=== PATIENT | female | born 1955 | race Caucasian/White ===

== ENCOUNTER 2020-03-16 14:39 | Emergency (ER) | payer OTHER ==
--- OUTSIDE RECORDS SUMMARY | 2020-03-16 14:56 | XMS ---
:1955 [facility] Organization [facility] Care Team Providers Name Role Phone Suero, Alice Unavailable Unavailable Suero, Alice Unavailable Unavailable Suero, Alice Unavailable Unavailable Suero, Alice Unavailable Unavailable Suero, Alice Unavailable Unavailable Suero, Alice Unavailable Unavailable Suero, Alice Unavailable Unavailable Suero, Alice Unavailable Unavailable Suero, Alice Unavailable Unavailable Suero, Alice Unavailable Unavailable ED STAFF PHYSICIAN, STAFF Unavailable Unavailable Coon, Marisol Unavailable Unavailable Coon, Marisol Unavailable Unavailable Coon, Marisol Unavailable Unavailable Coon, Marisol Unavailable Unavailable Coon, Marisol Unavailable Unavailable Coon, Marisol Unavailable Unavailable Coloka-Kump, Rodika DO Unavailable Unavailable Coloka-Kump, Rodika DO Unavailable Unavailable Coloka-Kump, Rodika DO Unavailable Unavailable Coloka-Kump, Rodika DO Unavailable Unavailable Coloka-Kump, Rodika DO Unavailable Unavailable Coloka-Kump, Rodika DO Unavailable Unavailable Coloka-Kump, Rodika DO Unavailable Unavailable Coloka-Kump, Rodika DO Unavailable Unavailable Coloka-Kump, Rodika DO Unavailable Unavailable Coloka-Kump, Rodika DO Unavailable Unavailable Coloka-Kump, Rodika DO Unavailable Unavailable Coloka-Kump, Rodika DO Unavailable Unavailable Coloka-Kump, Rodika DO Unavailable Unavailable Coloka-Kump, Rodika DO Unavailable Unavailable Coloka-Kump, Rodika DO Unavailable Unavailable Coloka-Kump, Rodika DO Unavailable Unavailable Coloka-Kump, Rodika DO Unavailable Unavailable Ringstad, Ilana Unavailable Unavailable Ringstad, Ilana Unavailable Unavailable Ringstad, Ilana Unavailable Unavailable Ringstad, Ilana Unavailable Unavailable Ringstad, Ilana Unavailable Unavailable Ringstad, Ilana Unavailable Unavailable Ringstad, Ilana Unavailable Unavailable Ringstad, Ilana Unavailable Unavailable Ringstad, Ilana Unavailable Unavailable Ringstad, Ilana Unavailable Unavailable Ringstad, Ilana Unavailable Unavailable Eric, Aqib Unavailable Unavailable Eric, Aqib Unavailable Unavailable Eric, Aqib Unavailable Unavailable Aszalos, Tomasa Brie Unavailable Unavailable Aszalos, Brie Unavailable Unavailable Aszalos, Brie Unavailable Unavailable Aszalos, Brie Unavailable Unavailable Aszalos, Brie Unavailable Unavailable Aszalos, Brie Unavailable Unavailable Aszalos, Brie Unavailable Unavailable Aszalos, Brie Unavailable Unavailable Aszalos, Brie Unavailable Unavailable Clemente Unavailable [phone] Clemente Unavailable [phone] Tete Jo MD Unavailable Unavailable Tete Jo MD Unavailable Unavailable Tete Jo MD Unavailable Unavailable Tete Jo MD Unavailable Unavailable Tete Jo MD Unavailable Unavailable Tete Jo MD Unavailable Unavailable Tete Jo MD Unavailable Unavailable Tete Jo MD Unavailable Unavailable Tete Jo MD Unavailable Unavailable Tete Jo MD Unavailable Unavailable Tete Jo MD Unavailable Unavailable Tete Jo MD Unavailable Unavailable Tete Jo MD Unavailable Unavailable Tete Jo MD Unavailable Unavailable Tete Jo MD Unavailable Unavailable ZUNASSIGNED Unavailable Unavailable Randall Unavailable [phone] Kendall Unavailable [phone] Randall Unavailable [phone] Murillo-Baron Unavailable Unavailable Murillo-Baron Unavailable Unavailable ED STAFF PHYSICIAN Unavailable Unavailable [email or web address]@, Unavailable Unavailable Re-disclosure Warning The records that you are about to access may contain information from federally- assisted alcohol or drug abuse programs. If such information is present, then the following federally mandated warning applies: This information has been disclosed to you from records protected by federal confidentiality rules (42 CFR part 2). The federal rules prohibit you from making any further disclosure of this information unless further disclosure is expressly permitted by the written consent of the person to whom it pertains or as otherwise permitted by 42 CFR part 2. A general authorization for the release of medical or other information is NOT sufficient for this purpose. The Federal rules restrict any use of the information to criminally investigate or prosecute any alcohol or drug abuse patient.The records that you are about to access may contain highly sensitive health information, the redisclosure of which is protected by Article 27-F of the [facility] Public Health law. If you continue you may haveaccess to information: Regarding HIV / AIDS; Provided by facilities licensed or operated by the [facility] Office of Mental Health; or Provided by the [facility] Office for People With Developmental Disabilities. If such information is present, then the following [facility] mandated warning applies: This information has been disclosed to you from confidential records which are protected by state law. State law prohibits you from making any further disclosure of this information without the specific written consent of the person to whom it pertains, or as otherwise permitted by law. Any unauthorized further disclosure in violation of state law may result in a fine or retirement sentence or both. A general authorization for the release of medical or other information is NOT sufficient authorization for further disclosure. Family History Family Member Family Member Family Member Date of Description Data Source(s) Name Gender Status Status Unknown Female Diagnosis 09/02/2010 NEXTGEN ([facility] 12:00:00 AM [facility]) Unknown Female Diagnosis 09/02/2010 NEXTGEN ([facility] 12:00:00 AM [facility]) Unknown Female [facility] Encounters Encounter Providers Location Date Indications Data Source(s ) Outpatient Attender: 03/07/2020 Leonacarlos manuel [facility] 12:49:00 Medical C enter tter: PM EDT ZUNASSIGNEDRefe rrer: [id number] [email or web address]@, Outpatient Attender: Alice Hooper 03/07/2020 [facility] VelezAdmitter: 09:20:00 Medical Ce nter Alice AM EDT VelezReferrer: Alice Sueor Outpatient Admitter: 03/07/2020 [facility] [id number] 12:00:00 Medical Center [email or web address]@,Re AM EDT marcelo: [id number] [email or web address]@, Attender: [facility] 10/10/2019 NEXTGEN ( int [facility] 10/10/2019 09:52:00 AM EDT Attender: [place] 10/01/2019 NEXTGEN ( int [facility] 09:18:00 [facility] AM EDT - Center) 10/01/2019 09:18:00 AM EDT Outpatient 08/17/2019 [facility] 09:53:00 Medical Center AM EDT Outpatient Attender: H 08/17/2019 [facility] Rodika 08:58:00 [facility] Panda-Divya AM EDT DOAdmitter: [facility] DOReferrer: La Nena [facility] DO OutpatientOFFICE Attender: [facility] 08/17/2019 NEXTG EN ([facility] /OUTPATIENT [facility] 08:58:00 Leona Medic al VISIT, EST [facility] AM EDT - Center) 08/17/2019 08:58:00 AM EDT Outpatient 08/17/2019 [facility] 12:00:00 Medical Center AM EDT Attender: [facility] 08/16/2019 NEXTGEN ( int [facility] 11:51:00 Leona Medica l Murillo-Baron AM EDT - Center) 08/16/2019 11:51:00 AM EDT Outpatient Attender: Alice Hooper 07/30/2019 [facility] eph VelezAdmitter: 09:23:00 Medical Ce nter Alice AM EST VelezReferrer: Alice Suero OutpatientOFFICE Attender: Grace [facility] 07/30/2019 Bridgette EXTGEN ([facility] /OUTPATIENT [facility] 09:23:00 Leona Medic al VISIT, EST AM EST - Center) 07/30/2019 09:23:00 AM EST Outpatient 07/30/2019 [facility] 08:39:00 Medical Center AM EST Outpatient 07/30/2019 [facility] 12:00:00 Medical Center AM EST Outpatient 07/04/2019 [facility] 10:22:00 Medical Center AM EST Outpatient Attender: Tomasa Hooper 07/04/2019 [facility] AszalosAdmitter 08:52:00 Medical C enter : Tomasa AM EST AszalosReferrer : Tomasa Araiza OutpatientOFFICE Attender: [facility] 07/04/2019 NEXTG EN ([facility] /[facility] 08:52:00 Leona Medic al VISIT, [facility] EST - Center) 07/04/2019 08:52:00 AM EST Outpatient 07/04/2019 [facility] 12:00:00 Medical Center AM EST Attender: [facility] 07/02/2019 NEXTGEN ([facility] 12:44:00 Leona Medica l [facility] EST - Center) 07/02/2019 12:44:00 PM EST Emergency Attender: ED H 06/23/2019 [facility] STAFF 10:17:00 Medical Center PHYSICIANAttend AM EST - er: STAFF ED 06/23/2019 STAFF 05:36:00 PHYSICIANAdmitt PM EST er: ED STAFF PHYSICIAN Patient discharged. Outpatient Attender: Alice Hooper 06/23/2019 [facility] VelezAdmitter: Alice 08:27:00 AM [facility] Medical Center Suero OutpatientOFFICE/O Attender: Nabila [facility] 06/23/2019 AMALIAGEN ([facility] VISIT, [facility] 08:27:00 AM EST - J osephs EST 06/23/2019 Medical 08:27:00 AM EST Center) Outpatient 06/23/2019 [facility] 08:26:00 AM EST Medical C enter Outpatient 06/23/2019 [facility] 12:00:00 AM EST Medical C enter Attender: [facility] 06/21/2019 NEXTGE N ([facility] 04:11:00 PM [facility] 06/21/2019 Medical 04:11:00 PM EST Center) Attender: [facility] 04/24/2019 NEXTGE N ([facility] 03:11:00 PM [facility] 04/24/2019 Medical 03:11:00 PM EST Center) Attender: [facility] 04/11/2019 NEXTGE N ([facility] 09:58:00 AM EST - [facility] 04/11/2019 Medical 09:58:00 AM EST Center) Attender: [facility] 03/23/2019 NEXT GEN ([facility] 01:36:00 AM EDT [facility] 03/23/2019 Medical 01:36:00 AM EDT Center) Outpatient 03/21/2019 [facility] 12:52:00 PM EDT Medical C enter Outpatient Attender: Alice Hooper 03/21/2019 [facility] VelezAdmitter: Alice 09:04:00 AM EDT Medical Center VelezReferrer: Alice Suero OutpatientOFFICE/O Attender: [facility] 03/21/2019 NEXTGEN ([facility] VISIT, [facility] 09:04:00 AM EDT - [facility] 03/21/2019 Medical 09:04:00 AM EDT Center) Outpatient 03/21/2019 [facility] 12:00:00 AM EDT Medical C enter Attender: [facility] 03/20/2019 NEXT GEN ([facility] 09:30:00 AM EDT - [facility] 03/20/2019 Medical 09:30:00 AM EDT Center) Attender: [facility] 02/21/2019 NEXT GEN ([facility] 03:02:00 PM EDT - [facility] 02/21/2019 Medical 03:02:00 PM EDT Center) Attender: [facility] 02/21/2019 NEXT GEN ([facility] 03:00:00 PM EDT - [facility] 02/21/2019 Medical 03:00:00 PM EDT Center) Attender: [facility] 02/21/2019 NEX TGEN ([facility] 09:55:00 AM EDT - [facility] 02/21/2019 Medical 09:55:00 AM EDT Center) Outpatient H 02/20/2019 [facility] 05:53:00 PM EDT Medical C enter OutpatientOFFICE/O Attender: [facility] 02/20/2019 NEXTGEN ([facility] VISIT, [facility] 05:53:00 PM EDT - J osep EST 02/20/2019 Medical 05:53:00 PM EDT Center) Attender: [facility] 02/20/2019 NEXTGE N ([facility] 04:13:00 PM EDT - [facility] 02/20/2019 Medical 04:13:00 PM EDT Center) Outpatient 02/20/2019 [facility] 12:50:00 PM EDT Medical C enter Outpatient 02/20/2019 [facility] 12:00:00 AM EDT Medical C enter Attender: [facility] 02/19/2019 NEXT GEN ([facility] 04:26:00 PM EDT - [facility] eph 02/19/2019 Medical 04:26:00 PM EDT Center) Outpatient Attender: Alice Hooper 02/19/2019 [facility] VelezAdmitter: Alice 10:14:00 AM EDT Medical Center VelezReferrer: Alice Suero OutpatientOFFICE/O Attender: [facility] 02/19/2019 NEXTGEN ([facility] 10:14:00 AM EDT [facility] 02/19/2019 Medical 10:14:00 AM EDT Center) Outpatient 02/19/2019 [facility] 09:07:00 AM EDT Medical C enter Outpatient 02/19/2019 [facility] 12:00:00 AM EDT Medical C enter Attender: [facility] 02/06/2019 NEXT N ([facility] 12:08:00 PM EDT - [facility] 02/06/2019 Medical 12:08:00 PM EDT Center) Attender: [facility] 01/24/2019 NEXT N ([facility] 09:50:00 AM EDT - [facility] 01/24/2019 Medical 09:50:00 AM EDT Center) Attender: [facility] 01/18/2019 NEXT N ([facility] 02:34:00 PM EDT - [facility] 01/18/2019 Medical 02:34:00 PM EDT Center) Immunizations Vaccine Date Status Description Data Source(s) New in 2011. IIV4 02/19/2019 completed Influenza, Injectable, NEXTGEN ([facility] 12:00:00 AM EDT Quadrivalent [facility]) Source: New Immunization Record Medications Medication Brand Start Product Dose Route Administrative Pharm[facility] Indications Reaction Description Data Name Date Form Instructions Instructions Source(s) Aspirin 81 aspiri ORAL active take 1 N EXTGEN MG Delayed n 81 2019 {tbl} tablet by (Sa int Release mg 12:00: oral route Dionicio phs Oral Tablet tablet 00 AM every day Medical aspirin 81 ,delay EDT Center) mg ed tablet,annita releas yed release e pantoprazol pantop .00 ORAL active take 2 NEXTGEN e 20 MG razole 2020 {tbl} tablet by (Del nt Delayed 20 mg 12:00: oral route Luis E ephs Release tablet 00 AM every day Medi ronda Oral Tablet ,delay EDT Center ) pantoprazol ed e 20 mg releas tablet,annita e yed release atorvastati atorva ORAL active take 1 NEXTGEN n 80 MG statin 2020 {tbl} tablet by (Del nt Oral Tablet 80 mg 12:00: oral route Leona atorvastati tablet 00 AM every day Medical n 80 mg EDT Center) tablet Metformin metfor ORAL active take 1 NE XTGEN hydrochlori min 2020 {tbl} tablet by (S aint de 500 MG 500 mg 12:00: oral route 2 Leona Oral Tablet tablet 00 AM times ever y Medical metformin EDT day with Center ) 500 mg morning and tablet evening meals Meclizine mecliz ORAL active take 1 NE XTGEN Hydrochlori ine 25 2019 {tbl} tablet by ([facility] de 25 MG mg 12:00: oral route 2 J osephs Oral Tablet tablet 00 AM times ever y Medical meclizine EDT day as Center) 25 mg needed tablet NITROFURANT Macrob ORAL complet NITROF URANTO NEXTGEN OIN, id 100 2020 {caps ed IN, ([facility] MACROCRYSTA mg 12:00: ule} MACROCRYSTA L Leona LS 25 MG / capsul 00 AM S 25 MG / M edical Nitrofurant e EST Nitrofuranto Center) oin, in, Monohydrate Monohydrate 75 MG Oral 75 MG Oral Capsule Capsule [Macrobid] [Macrobid] Macrobid 100 mg capsule 120 ACTUAT Floven . RESPIR active 120 AC TUAT NEXTGEN Fluticasone t HFA 2020 {puff ATORY Fluticason e ([facility] propionate 110 12:00: } (INHAL propionate Leona 0.11 mcg/ac 00 AM ATION) 0.11 Medical MG/ACTUAT tuatio EST MG/ACTUAT [facility]) Metered n Metered Dose Dose aeroso Inhaler Inhaler l [Flovent] [Flovent] inhale Flovent HFA r 110 mcg/actuati on aerosol inhaler Ibuprofen ibupro . ORAL complet take 1 N EXTGEN 600 MG Oral fen 2019 {tbl} ed tablet by (S aint Tablet 600 mg 12:00: oral route 3 J osephs ibuprofen tablet 00 AM times every Medical 600 mg EST day with Center) tablet food 200 ACTUAT Ventol 07/04/ active [id number] NEXTGEN Albuterol in HFA 2019 200 ACTUAT (S aint 0.09 90 12:00: Albuterol Leona MG/ACTUAT mcg/ac 00 AM 0.09 Medical Metered tuatio EST MG/ACTUAT Cente r) Dose n Metered Dose Inhaler aeroso Inhaler [Ventolin] l [Ventolin] Ventolin inhale HFA 90 r mcg/actuati on aerosol inhaler Famotidine famoti . ORAL complet take 1 NEXTGEN 20 MG Oral dine 2019 {tbl} ed tablet by (Sa int Tablet 20 mg 12:00: oral route 2 An sephs famotidine tablet 00 AM times every Medical 20 mg EST day Center) tablet Meclizine mecliz ORAL complet take 1 N EXTGEN Hydrochlori ine 25 2018 {tbl} ed tablet by (Saint de 25 MG mg 12:00: oral route 2 J osephs Oral Tablet tablet 00 AM times ever y Medical meclizine EDT day as Center) 25 mg needed tablet atorvastati atorva . ORAL complet take 1 NEXTGEN n 80 MG statin 2018 {tbl} ed tablet by (Del nt Oral Tablet 80 mg 12:00: oral route Leona atorvastati tablet 00 AM every day Medical n 80 mg EDT Center) tablet Glycerin Clear 03/21/ complet To apply 1 -2 NEXTGEN 2.5 MG/ML / Eyes 2019 ed gtt each (Del nt Naphazoline Itchy 12:00: eye, for J osephs Hydrochlori Eye 00 AM itchiness/re Medical de 0.12 Relief EDT dness as Center ) MG/ML / 0.012 needed. Zinc %-0.25 Sulfate 2.5 %-0.25 MG/ML % Ophthalmic drops Solution Clear Eyes Itchy Eye Relief 0.012 %-0.25 %-0.25 % drops 200 ACTUAT Ventol 02/20/ complet [id number] NEXTGEN Albuterol in HFA 2019 ed 200 ACTUAT (S aint 0.09 90 12:00: Albuterol [place]ona MG/ACTUAT mcg/ac 00 AM 0.09 Medical Metered tuatio EDT MG/ACTUAT Cente r) Dose n Metered Dose Inhaler aeroso Inhaler [Ventolin] l [Ventolin] Ventolin inhale HFA 90 r mcg/actuati on aerosol inhaler 120 ACTUAT Floven 02/20/ 1.00 RESPIR complet 120 A CTUAT NEXTGEN Fluticasone t HFA 2019 {puff ATORY ed Fluticason e ([facility] propionate 110 12:00: } (INHAL propionate Leona 0.11 mcg/ac 00 AM ATION) 0.11 Medical MG/ACTUAT tuatio EDT MG/ACTUAT [facility]) Metered n Metered Dose Dose aeroso Inhaler Inhaler l [Flovent] [Flovent] inhale Flovent HFA r 110 mcg/actuati on aerosol inhaler Flonase Flutic 02/20/ NASAL complet Fluticaso ne NEXTGEN Allergy asone 2019 ed propionate (Gerardo t Relief 50 propio 12:00: 0.05 [place] s mcg/actuati godfrey 00 AM MG/ACTUAT Me dical on nasal 0.05 EDT Metered Dose [address]) spray,suspe MG/ACT Nasal [place] nsion UAT [Flonase] Metere d Dose Nasal [place] 200 ACTUAT Ventol 02/19/ complet [id number] NEXTGEN Albuterol in HFA 2019 ed 200 ACTUAT (S aint 0.09 90 12:00: Albuterol [place] MG/ACTUAT mcg/ac 00 AM 0.09 Medical Metered tuatio EDT MG/ACTUAT Cente r) Dose n Metered Dose Inhaler aeroso Inhaler [Ventolin] l [Ventolin] Ventolin inhale HFA 90 r mcg/actuati on aerosol inhaler 120 ACTUAT Floven .00 RESPIR complet 120 A CTUAT NEXTGEN Fluticasone t HFA 2018 {puff ATORY ed Fluticason e ([facility] propionate 44 12:00: } (INHAL propionate [place]ona 0.044 mcg/ac 00 AM ATION) 0.044 Medical MG/ACTUAT tuatio EDT MG/ACTUAT [facility]) Metered n Metered Dose Dose aeroso Inhaler Inhaler l [Flovent] [Flovent] inhale Flovent HFA r 44 mcg/actuati on aerosol inhaler 120 ACTUAT Floven .00 RESPIR complet 120 A CTUAT NEXTGEN Fluticasone t HFA 2018 {puff ATORY ed Fluticason e ([facility] propionate 110 12:00: } (INHAL propionate [place]ona 0.11 mcg/ac 00 AM ATION) 0.11 Medical MG/ACTUAT tuatio EDT MG/ACTUAT [facility]) Metered n Metered Dose Dose aeroso Inhaler Inhaler l [Flovent] [Flovent] inhale Flovent HFA r 110 mcg/actuati on aerosol inhaler Flonase Flutic 02/19/ NASAL complet Fluticaso ne NEXTGEN Allergy asone 2019 ed propionate (Gerardo t Relief 50 propio 12:00: 0.05 [place] s mcg/actuati godfrey 00 AM MG/ACTUAT Me dical on nasal 0.05 EDT Metered Dose [address]) spray,suspe MG/ACT Nasal [place] nsion UAT [Flonase] Metere d Dose Nasal [place] Calcium Calciu ORAL active take 1 NEXT GEN Carbonate m 500 2018 {tbl} tablet by (Sa int 1250 MG / mg 12:00: oral route An sephs Cholecalcif (1,250 00 AM every day Medical shasta 125 mg) + EDT Center) UNT Oral D3 125 Tablet unit Calcium 500 tablet mg (1,250 mg) + D3 125 unit tablet Aspirin 81 aspiri .00 ORAL complet take 1 NEXTGEN MG Delayed n 81 2018 {tbl} ed tablet by (Sa int Release mg 12:00: oral route Dionicio phs Oral Tablet tablet 00 AM every day Medical aspirin 81 ,delay EDT Center) mg ed tablet,annita releas yed release e 120 ACTUAT Floven 12/20/ 2.00 RESPIR complet 120 A CTUAT NEXTGEN Fluticasone t HFA 2019 {puff ATORY ed Fluticason e ([facility] propionate 44 12:00: } (INHAL propionate Leona 0.044 mcg/ac 00 AM ATION) 0.044 Medical MG/ACTUAT tuatio EDT MG/ACTUAT [facility]) Metered n Metered Dose Dose aeroso Inhaler Inhaler l [Flovent] [Flovent] inhale Flovent HFA r 44 mcg/actuati on aerosol inhaler Glycerin Clear 12/20/ complet To apply 1 -2 NEXTGEN 2.5 MG/ML / Eyes 2019 ed gtt each (Del nt Naphazoline Itchy 12:00: eye, for J osephs Hydrochlori Eye 00 AM itchiness/re Medical de 0.12 Relief EDT dness as Center ) MG/ML / 0.012 needed. Zinc %-0.25 Sulfate 2.5 %-0.25 MG/ML % Ophthalmic drops Solution Clear Eyes Itchy Eye Relief 0.012 %-0.25 %-0.25 % drops atorvastati atorva .00 ORAL complet take 1 NEXTGEN n 80 MG statin 2018 {tbl} ed tablet by (Del nt Oral Tablet 80 mg 12:00: oral route [place] atorvastati tablet 00 AM every day Medical n 80 mg EDT Center) tablet Metformin metfor .00 ORAL complet take 1 N EXTGEN hydrochlori min 2018 {tbl} ed tablet by (S aint de 500 MG 500 mg 12:00: oral route 2 [place] Oral Tablet tablet 00 AM times ever y Medical metformin EDT day with Center ) 500 mg morning and tablet evening meals Meclizine mecliz ORAL complet take 1 N EXTGEN Hydrochlori ine 2018 {tbl} ed tablet by ( de 25 MG mg 12:00: oral route 2 J osephs Oral Tablet tablet 00 AM times ever y Medical meclizine EDT day as Center) 25 mg needed tablet Flonase Flutic 09/20/ NASAL complet Fluticaso ne NEXTGEN Allergy asone 2019 ed propionate (Gerardo t Relief 50 propio 12:00: 0.05 [place] [facility] mcg/actuati godfrey 00 AM MG/ACTUAT Me dical on nasal 0.05 EDT Metered Dose [address]) spray,suspe MG/ACT Nasal [place] nsion UAT [Flonase] Metere d Dose Nasal [place] 200 ACTUAT Ventol [id number] NEXTGEN Albuterol in HFA 2019 ed 200 ACTUAT (S aint 0.09 90 12:00: Albuterol [place] MG/ACTUAT mcg/ac 00 AM 0.09 Medical Metered tuatio EDT MG/ACTUAT Cente r) Dose n Metered Dose Inhaler aeroso Inhaler [Ventolin] l [Ventolin] Ventolin inhale HFA 90 r mcg/actuati on aerosol inhaler Insurance Providers Payer name Policy type Policy ID Covered Covered green party's Policy P mis / Coverage green party ID relationship to Perdomo Inf ormation type perdomo IRENE [id number] SP [id number] HEALTH NON CAP IRENE W [id number] 01 [id number] CARE Problems, Conditions, and Diagnoses Code Display Name Description Problem Type Effective Data Dates Source(s) Z11.9 Encounter for ENCOUNTER FOR Diagnosis 03/07/2020 [facility] screening for SCREENING FOR 09:20:00 AM [facility] infectious and INFEC/PARASTC ED Medical parasitic diseases, DISEASES, UNSP C enter unspecified Z23 Encounter for ENCOUNTER FOR Diagnosis 03/07/2020 [facility] immunization IMMUNIZATION 09:20:00 AM [facility] Z71.89 Other specified OTHER SPECIFIED Diagnosis 03/07/2020 [facility] counseling COUNSELING 09:20:00 AM [facility] N64.9 Disorder of breast, DISORDER OF BREAST, Diagnosis 020 [facility] unspecified UNSPECIFIED 09:20:00 AM [facility] E78.5 Hyperlipidemia, HYPERLIPIDEMIA, Diagnosis 03/07/2020 Gerardo chung unspecified UNSPECIFIED 09:20:00 AM [facility] Z12.31 Encounter for ENCNTR SCREEN Diagnosis 03/07/2020 [facility] screening mammogram MAMMOGRAM FOR 09:20:00 AM [facility] MALIGNANT NEOPLASM EDT Med ical neoplasm of breast OF BREAST Center E11.9 Type 2 diabetes TYPE 2 DIABETES Diagnosis 08/17/2019 Gerardo chung mellitus without MELLITUS WITHOUT 08:58:00 AM J osep complications COMPLICATIONS EDT Medical Center R42 Dizziness and DIZZINESS AND Diagnosis 08/17/2019 giddiness GIDDINESS 08:58:00 AM [facility] K21.9 Gastro-esophageal GASTRO-ESOPHAGEAL Diagnosis 08/17/2019 reflux disease REFLUX DISEASE 08:58:00 AM [facility] without esophagitis WITHOUT ESOPHAGITIS [facility] [facility] [facility] [place] Z71.9 Counseling, COUNSELING, Diagnosis 07/30/2019 unspecified UNSPECIFIED 09:23:00 AM [facility] R30.0 Dysuria DYSURIA Diagnosis 07/30/2019 [facility] 09:23:00 AM [facility] 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 JUNCTION SYNDROME 08:52:00 AM [facility] [Tietze] (TIETZE) [facility] J45.909 Unspecified asthma, UNSPECIFIED ASTHMA, Diagnosis [facility] uncomplicated UNCOMPLICATED 10:17:00 AM [facility] R40.2410 Ricky coma scale RICKY COMA SCALE Diagnosis 0 [facility] score 13-15, SCORE 13-15, 10:17:00 AM [facility] unspecified time UNSPECIFIED TIME [facility] dical Center M79.18 MYALGIA, OTHER SITE MYALGIA, OTHER SITE Diagnosis [facility] 10:17:00 AM [facility] R10.9 Unspecified UNSPECIFIED Diagnosis 06/23/2019 abdominal pain ABDOMINAL PAIN 10:17:[facility]10.812 Left upper quadrant LEFT UPPER QUADRANT Diagnosis [facility] abdominal tenderness ABDOMINAL TENDERNESS 08:27 :00 AM [facility] Z11.4 Encounter for ENCOUNTER FOR Diagnosis 03/21/2019 screening for human SCREENING FOR HUMAN 09:04:0 0 AM [place] immunodeficiency IMMUNODEFICIENCY T [facility] virus [HIV] VIRUS Center Z68.30 Body mass index BODY MASS INDEX Diagnosis 03/21/2019 Gerardo t (BMI) 30.0-30.9, (BMI) 30.0-30.9, 09:04:00 AM [facility] adult ADULT [facility] Z13.9 Encounter for ENCOUNTER FOR Diagnosis 03/21/2019 screening, SCREENING, 09:04:00 AM [place] unspecified UNSPECIFIED [facility] J30.2 Other seasonal OTHER SEASONAL Diagnosis 03/21/2019 allergic rhinitis ALLERGIC RHINITIS 09:04:00 AM [facility] H81.13 Benign paroxysmal BENIGN PAROXYSMAL Diagnosis 03/21/2019 [facility] vertigo, bilateral VERTIGO, BILATERAL 09:04:00 AM [facility] J45.40 Moderate persistent MODERATE PERSISTENT Diagnosis [facility] asthma, ASTHMA, 05:53:00 PM [facility] Z71.82 Exercise counseling EXERCISE COUNSELING Diagnosis [facility] 10:14:00 AM [facility] Z71.3 Dietary counseling DIETARY COUNSELING Diagnosis 9 [facility] and surveillance AND SURVEILLANCE 10:14:00 AM [facility] Surgeries/Procedures Procedure Description Date Indications Data Source(s) OFFICE/OUTPATIENT VISIT, 08/17/2019 NEX TGEN ([facility] EST 12:00:00 AM EDT [facility] - 08/17/2019 [place]) 12:00:00 AM EDT OFFICE/OUTPATIENT VISIT, 07/30/2019 NEX TGEN ([facility] EST 12:00:00 AM [facility] 07/30/2019 [place]) 12:00:00 AM EST OFFICE/OUTPATIENT VISIT, 07/04/2019 NEX TGEN ([facility] EST 12:00:00 AM [facility] - 07/04/2019 [place]) 12:00:00 AM EST OFFICE/OUTPATIENT VISIT, 06/23/2019 NEX TGEN ([facility] EST 12:00:00 AM [facility] - 06/23/2019 [place]) 12:00:00 AM EST OFFICE/OUTPATIENT VISIT, 03/21/2019 NEX TGEN ([facility] EST 12:00:00 AM EDT [facility] - 03/21/2019 [place]) 12:00:00 AM EDT OFFICE/OUTPATIENT VISIT, 02/20/2019 NEX TGEN ([facility] [place] 12:00:00 AM EDT Influenza, Injectable, 3 02/19/2019 NEX TGEN ([facility] Yrs Or Older [facility] [place] 12:00:00 AM EDT Immunization 02/19/2019 NEXTGEN ([facility] Administration 12:00:00 AM EDT [facility] dical - 02/19/2019 Center) 12:00:00 AM EDT OFFICE/OUTPATIENT VISIT, 02/19/2019 NEX TGEN ([facility] EST 12:00:00 AM EDT [facility] ronda - 02/19/2019 Center) 12:00:00 AM EDT Results ID Date Data Source [id number] 03/08/2020 09:35:00 AM EDT [facility] Name Value Range Interpretation Description Data Sup porting Code Source(s) Document(s ) SARS [facility] coronavirus 2 RNA This lab was ordered by [facility] and reported by [facility]. ID Date Data Source [id number] 03/07/2020 11:51:00 AM EDT [facility] -0400 Name Value Range Interpretation Code Description Data Sabiha rce(s) Supporting Document(s ) UNK 4.2-5.8 Above high normal <content [facility] styleCode="Bold" Medical Cente r >Hemoglobin A1C </content>6.3 % H<content styleCode="Itali cs"> (4.2-5.8 %)</content> ID Date Data Source [id number] 11/28/2019 12:00:00 AM EDT [facility] Name Value Range Interpretation Description Data Sup porting Code Source(s) Document(s ) SARS [facility] coronavirus 2 RNA This lab was ordered by [facility] and reported by [facility]. ID Date Data Source [id number] 07/30/2019 10:37:00 AM EST NEXTG EN ([facility] [id number] [place]) Name Value Range Interpretation Description Data Sup porting Code Source(s) Document(s ) Negative Bilirubin NEXTGEN ([facility]) Clear Clarity N[facility]GEN ([facility]) Trace Blood NEXT[facility] ([facility]) 1.010 [place] [facility]) Urinalysis Yellow Color NEXTGEN dipstick panel ([facility] Urine [facility] Automated test Medical strip Center) 7.0 pH NEXTGEN ([facility]) Negative Ketones NEXTGEN ([facility]) Negative Nitrite NEXTGEN ([facility]) Moderate Leukocytes NEXTGEN ([facility]) Negative Urobilinogen NEXTGEN ([facility]) Negative Glucose NEXTGEN ([facility]) Negative Protein NEXTGEN ([facility]) ID Date Data Source [id number] 07/30/2019 10:35:00 AM EST NEXTG EN ([facility] [id number] [place]) Name Value Range Interpretation Code Description Data Supporting Source(s) Document(s ) >16 Results entered -- AMPICILLIN NEXTGEN not verified ([facility]) <=4 Susceptible. AZTREONAM NEXTGEN Indicates for ([facility] [place]) <=2 Susceptible. CEFAZOLIN NEXTGEN Indicates for ([facility] Medical only. [place]) 16/8 Specimen in lab; AMPICILLIN NEXTGEN results pending SULBACTAM ([facility]) <=4 Susceptible. CEFUROXIME NEXTGEN Indicates for ([facility] Medical [place]. [place]) <=1 Susceptible. CEFTRIAXONE NEXTGEN Indicates for ([facility]. [place]) <=1 Susceptible. CEFTAZIDIME NEXTGEN Indicates for ([facility]. [place]) <= 4 Susceptible. GENTAMICIN NEXTGEN Indicates for ([facility] Medical only. [place]) <= 2 Susceptible. LEVOFLOXACIN NEXTGEN Indicates for ([facility] Medical only. [place]) <= 1 Susceptible. CIPROFLOXACIN NEXTGEN Indicates for ([facility] Medical [place]. [place]) <= 32 Susceptible. NITROFURANTOIN NEXTGEN Indicates for ([facility] Medical [place]. [place]) <= 1 Susceptible. MEROPENEM NEXTGEN Indicates for ([facility] only. [place]) <= 16 Susceptible. PIPERACILLIN/TAZOB NEXTGEN Indicates for ACTAM ([facility] Medical only. [place]) <=2/38 Susceptible. TRIMETHOPRIM/SULFA NEXTGEN Indicates for METHOXAZOLE ([facility] Medical only. [place]) <= 4 Susceptible. TETRACYCLINE NEXTGEN Indicates for ([facility]. [place]) <=0.5 Susceptible. ERTAPENEM NEXTGEN Indicates for ([facility] Medical only. [place]) <= 1 CEFOTAXIME-ESBL NEXTGEN ([facility]) <= 8 Susceptible. CEFOXITIN NEXTGEN Indicates for ([facility] only. Center) ID Date Data Source [id number] 07/30/2019 10:35:00 AM EST NEXTG EN ([facility] [id number] [place]) Name Value Range Interpretation Description Data Sup porting Code Source(s) Document(s ) ESCHERICHIA COLI ORGANISM ID [facility] ID Date Data Source [id number] 07/30/2019 10:35:00 AM EST NEXTG EN ([facility] [id number] [place]) Name Value Range Interpretation Description Data Sup porting Code Source(s) Document(s ) 62.94017 SPE[facility]IMEN NO [facility]) Final CULTURE STATUS [facility] ([facility]) 07/30/2019 COLLECTION DT NEXTGEN 10:35 ([facility]) URINE BLADDER CULTURE SOURCE [facility]) 50,000 CFU/ML COLONY COUNT [facility]) 07/30/2019 PLATE DT NEXTGEN 12:17 ([facility]) Culture in CULTURE REPORT [facility] progress ([facility]) LACTOSE PRELIMINARY 1 [facility] ADVANCED PRACTICE NURSE ([facility]) ID Date Data Source [id number] 07/30/2019 10:35:00 AM EST NEXTG EN ([facility] [id number] [place]) Name Value Range Interpretation Description Data Sup porting Code Source(s) Document(s ) 62.46605 SPECIMEN NO [facility]) Preliminary CULTURE STATUS [facility] ([facility]) URINE BLADDER CULTURE SOURCE [facility] ([facility]) 07/30/2019 COLLECTION DT NEXTGEN 10:35 ([facility]) 07/30/2019 PLATE DT NEXTGEN 12:17 ([facility]) Culture in [facility] REPORT [facility] progress ([facility]) 50,000 CFU/ML COLONY COUNT [facility]) LACTOSE PRELIMINARY 1 [facility] ADVANCED PRACTICE NURSE ([facility]) ID Date Data Source [id number] 07/30/2019 10:35:00 AM EST NEXTG EN ([facility] [id number] [place]) Name Value Range Interpretation Description Data Sup porting Code Source(s) Document(s ) Preliminary C[facility]URE STATUS [facility]) URINE BLADDER CULTURE SOURCE [facility] ([facility]) 62.31590 SPECIMEN NO NEXTGEN ([facility]) 07/30/2019 PLATE DT NEXTGEN 12:17 ([facility]) 07/30/2019 COLLECTION DT NEXTGEN 10:35 ([facility]) Culture in [facility] REPORT [facility] progress ([facility]) ID Date Data Source [id number] 07/30/2019 10:35:00 AM EST NEXTG EN ([facility] [id number] [place]) Name Value Range Interpretation Description Data Sup porting Code Source(s) Document(s ) CLEAR CLEAR U CLARITY [facility] ([facility]) YELLOW YELLOW U COLOR [facility] ([facility]) NEGATIVE NEGATIVE U BILIRUBIN NEXT[facility] ([facility]) NEGATIVE NEGATIVE U GLUCOSE [facility] ([facility]) NEGATIVE NEGATIVE U KETONE [facility] ([facility]) <= 1.005 1.015-1.025 Below low normal U SP.GRAVITY [facility] ([facility]) 6.0 4.5-8.0 U PH [facility] ([facility]) NEGATIVE NEGATIVE U PROTEIN [facility] ([facility]) TRACE NEGATIVE U [facility]LOOD [facility] NEGATIVE NEGATIVE U NITRITE [facility] ([facility]) 0.2 MG/DL 0.2-1.0 U UROBILINOGEN [facility]) 0-3 0-3 U RBC [facility] ([facility]) MODERATE NEGATIVE U. [facility]OCYTE [facility]) 20 - 50 0-3 U WBC [facility]) 2-5 NONE SEEN U EPITH [facility] ([facility]) MODERATE NEGATIVE U BACTERIA [facility] ([facility]) ID Date Data Source [id number] 07/30/2019 10:35:00 AM EST NEXTG EN ([facility] [id number] [place]) Name Value Range Interpretation Description Data Sup porting Code Source(s) Document(s ) CLEAR CLEAR U CLARITY [facility] ([facility]) NEGATIVE NEGATIVE U GLUCOSE [facility] ([facility]) NEGATIVE NEGATIVE U BILIRUBIN [facility] ([facility]) NEGATIVE NEGATIVE U KETONE [facility] ([facility]) <= 1.005 1.015-1.025 Below low normal U SP.GRAVITY [facility] ([facility]) 6.0 4.5-8.0 U PH [facility] ([facility]) TRACE NEGATIVE U BLOOD [facility] ([facility]) NEGATIVE NEGATIVE U PROTEIN [facility] ([facility]) 0.2 MG/DL 0.2-1.0 U UROBILINOGEN [facility] ([facility]) NEGATIVE NEGATIVE U [facility]ITE [facility]) MODERATE NEGATIVE U. LEUKOCYTE [facility] ([facility]) ID Date Data Source [id number] 07/30/2019 09:35:00 AM EST [facility] 0 Name Value Range Interpretation Description Data Sup porting Code Source(s) Document(s ) Glucose NEGATIVE <content [facility] [Mass/volume] styleCode="Federica [place] in Urine by d">Urine Medical Test strip Glucose Center </content>NEGA TIVE MG/DL<content styleCode="Danni lics"> (NEGATIVE MG/DL)</conten t> UNK CLEAR <content [facility] styleCode="[facility] d">Urine Medical Clarity Center </content>FIDELIA R <content styleCode="Danni lics"> (CLEAR )</content> Color of Urine YELLOW <content [facility] styleCode="Federica Leona d">Color, Medical Urine Center </content>YELL OW <content styleCode="Danni lics"> (YELLOW )</content> Ketones NEGATIVE <content [facility] [Mass/volume] styleCode="[facility]eder[facility] in Urine by d">Urine Medical Test strip Ketone Center </content>NEGA TIVE MG/DL<content styleCode="Danni lics"> (NEGATIVE MG/DL)</conten t> Specific 1.015-1.02 Below low normal <content [facility] gravity of 5 styleCode="Federica Seays Urine by Test d">Urine Medical strip Specific Center [place] </content><= 1.005 L<content styleCode="Danni lics"> (1.015-1.025 )</content> Hemoglobin NEGATIVE <content [facility] [Presence] in styleCode="Federica Leona Urine by Test d">Urine Blood Medical strip </content>TRAC Center E <content styleCode="Danni lics"> (NEGATIVE )</content> UNK NEGATIVE <content [facility] styleCode="Feder[facility]ona d">Urine Medical Bilirubin Center </content>NEGA TIVE <content styleCode="Danni lics"> (NEGATIVE )</content> pH of Urine by 4.5-8.0 <content [facility] Test strip styleCode="Federica [facility] d">Urine pH Medical </content>6.0 Center <content styleCode="Danni lics"> (4.5-8.0 )</content> Urobilinogen 0.2-1.0 <content [facility] [Units/volume] styleCode="[facility] in Urine by d">Urine Medical Test strip Urobilinogen Center </content>0.2 MG/DL<content styleCode="Danni lics"> (0.2-1.0 MG/DL)</conten t> Protein NEGATIVE <content [facility] [Mass/volume] styleCode="[facility] [place] in Urine by d">Urine Medical Test strip Protein Center </content>NEGA TIVE MG/DL<content styleCode="Danni lics"> (NEGATIVE MG/DL)</conten t> Nitrite NEGATIVE <content [facility] [Presence] in styleCode="[facility] Urine by Test d">Urine Medical strip Nitrite Center </content>NEGA TIVE <content styleCode="Danni lics"> (NEGATIVE )</content> UNK 0-3 <content [facility] styleCode="[facility]eder[facility] d">Urine White Medical Blood Cell Center </content>20 - 50 HPF<content styleCode="Danni lics"> (0-3 HPF)</content> Leukocyte NEGATIVE <content [facility] esterase styleCode="Feder[facility] Leona [Presence] in d">Urine Medical Urine by Test Leukocyte Center strip </content>MODE RATE <content styleCode="Danni lics"> (NEGATIVE )</content> UNK NONE SEEN <content styleCode="[facility] d">Epithelial Medical Cell Center </content>2-5 HPF<content styleCode="Danni lics"> (NONE SEEN HPF)</content> UNK 0-3 <content styleCode="[facility]eder[facility] Delgadillo d">Urine Red Medical Blood Cell Center </content>0-3 HPF<content styleCode="Danni lics"> (0-3 HPF)</content> UNK NEGATIVE <content styleCode="[facility] d">Urine Medical Bacteria Center </content>MODE RATE HPF<content styleCode="Danni lics"> (NEGATIVE HPF)</content> ID Date Data Source [id number] 07/30/2019 09:35:00 AM [facility] Name Value Range Interpretation Code Description Data Sabiha rce(s) Supporting Document(s ) UNK <item><content [facility] styleCode="Bold"> Medical Cent er Culture Status </content>
<t able><tbody><tr>< td>Specimen Number:</td><td>[id number]</td></tr ><tr><td>Sample Collection Date/Time: </td><td>07/30/2019 10:35 AM</td></tr><tr>< td>Specimen Source:</td><td>U RINE BLADDER</td></tr> <tr><td>Canones Count Urine:</td><td>50 ,000 CFU/ML </td></tr><tr><td >Preliminary 1:</td><td>LACTOS E ADVANCED PRACTICE NURSE </td></tr><tr><td >Culture Status:</td><td>F inal </td></tr><tr><td >Culture Report:</td><td>C ulture in progress </td></tr><tr><td >Urine Culture:</td><td> Collection Plate Date: 07/30/2019 12:17 </td></tr><tr><td >Organism 1:</td><td>ESCHER ICHIA COLI </td></tr></tbody ></table>
<ta ble border="2"><tbody ><tr><td></td><td >1</td></tr><tr>< td>Comment</td><t d></td></tr><tr>< td>Result Value</td><td>ESC HERICHIA COLI </td></tr><tr><td >Result Status</td><td>Fi nal Result</td></tr>< tr><td>AMPICILLIN </td><td>>16 R</td></tr><tr><t d>AMPICILLIN SULBACTAM</td><td >16/8 I</td></tr><tr><t d>AZTREONAM</td>< td><=4 S</td></tr><tr><t d>CEFAZOLIN</td>< td><=2 S</td></tr><tr><t d>CEFOTAXIME-ESBL </td><td><= 1 ^N</td></tr><tr>< td>CEFOXITIN</td> <td><= 8 S</td></tr><tr><t d>CEFTAZIDIME</td ><td><=1 S</td></tr><tr><t d>CEFTRIAXONE</td ><td><=1 S</td></tr><tr><t d>CEFUROXIME</td> <td><=4 S</td></tr><tr><t d>CIPROFLOXACIN</ td><td><= 1 S</td></tr><tr><t d>ERTAPENEM</td>< td><=0.5 S</td></tr><tr><t d>GENTAMICIN</td> <td><= 4 S</td></tr><tr><t d>LEVOFLOXACIN</t d><td><= 2 S</td></tr><tr><t d>MEROPENEM</td>< td><= 1 S</td></tr><tr><t d>NITROFURANTOIN< /td><td><= 32 S</td></tr><tr><t d>PIPERACILLIN/TA ZOBACTAM</td><td> <= 16 S</td></tr><tr><t d>TETRACYCLINE</t d><td><= 4 S</td></tr><tr><t d>TRIMETHOPRIM/TELLES LFAMETHOXAZOLE</t d><td><=2/38 S</td></tr></tbod y></table></item> UNK <item><content [facility] styleCode="Bold"> Medical [facility] er Culture Report </content>
<t able><tbody><tr>< td>Specimen Number:</td><td>[id number]</td></tr ><tr><td>Sample Collection Date/Time: </td><td>07/30/2019 10:35 AM</td></tr><tr>< td>Specimen Source:</td><td>U RINE BLADDER</td></tr> <tr><td>Urine Culture:</td><td> Collection Plate Date: 07/30/2019 12:17 </td></tr><tr><td >Culture Status:</td><td>F inal </td></tr><tr><td >Culture Report:</td><td>C ulture in progress </td></tr><tr><td >Canones Count Urine:</td><td>50 ,000 CFU/ML </td></tr><tr><td >Preliminary 1:</td><td>LACTOS E ADVANCED PRACTICE NURSE </td></tr><tr><td >Organism 1:</td><td>ESCHER ICHIA COLI </td></tr></tbody ></table>
<ta ble border="2"><tbody ><tr><td></td><td >1</td></tr><tr>< td>Comment</td><t d></td></tr><tr>< td>Result Value</td><td>ESC HERICHIA COLI </td></tr><tr><td >Result Status</td><td>Fi nal Result</td></tr>< tr><td>AMPICILLIN </td><td>>16 R</td></tr><tr><t d>AMPICILLIN SULBACTAM</td><td >16/8 I</td></tr><tr><t d>AZTREONAM</td>< td><=4 S</td></tr><tr><t d>CEFAZOLIN</td>< td><=2 S</td></tr><tr><t d>CEFOTAXIME-ESBL </td><td><= 1 ^N</td></tr><tr>< td>CEFOXITIN</td> <td><= 8 S</td></tr><tr><t d>CEFTAZIDIME</td ><td><=1 S</td></tr><tr><t d>CEFTRIAXONE</td ><td><=1 S</td></tr><tr><t d>CEFUROXIME</td> <td><=4 S</td></tr><tr><t d>CIPROFLOXACIN</ td><td><= 1 S</td></tr><tr><t d>ERTAPENEM</td>< td><=0.5 S</td></tr><tr><t d>GENTAMICIN</td> <td><= 4 S</td></tr><tr><t d>LEVOFLOXACIN</t d><td><= 2 S</td></tr><tr><t d>MEROPENEM</td>< td><= 1 S</td></tr><tr><t d>NITROFURANTOIN< /td><td><= 32 S</td></tr><tr><t d>PIPERACILLIN/TA ZOBACTAM</td><td> <= 16 S</td></tr><tr><t d>TETRACYCLINE</t d><td><= 4 S</td></tr><tr><t d>TRIMETHOPRIM/TELLES LFAMETHOXAZOLE</t d><td><=2/38 S</td></tr></tbod y></table></item> ID Date Data Source [id number] 06/23/2019 11:35:00 AM [facility] Name Value Range Interpretation Description Data Sup porting Code Source(s) Document(s ) Color of Urine YELLOW <content [facility] styleCode="[facility] d">Color, Medical Urine Center </content>YELL OW <content styleCode="Danni lics"> (YELLOW )</content> UNK CLEAR <content [facility] styleCode="[facility] d">Urine Medical Clarity Center </content>FIDELIA R <content styleCode="Danni lics"> (CLEAR )</content> Specific 1.015-1.02 Below low normal <content [facility] gravity of 5 styleCode="[facility] Urine by Test d">Urine Medical strip Specific Center [place] </content><= 1.005 L<content styleCode="Danni lics"> (1.015-1.025 )</content> UNK NEGATIVE <content [facility] styleCode="[facility] d">Urine Medical Bilirubin Center </content>NEGA TIVE <content styleCode="Danni lics"> (NEGATIVE )</content> Ketones NEGATIVE <content [facility] [Mass/volume] styleCode="Federica Seays in Urine by d">Urine Medical Test strip Ketone Center </content>15 MG/DL<content styleCode="Danni lics"> (NEGATIVE MG/DL)</conten t> Glucose NEGATIVE <content [facility] [Mass/volume] styleCode="Federica Seays in Urine by d">Urine Medical Test strip Glucose Center </content>NEGA TIVE MG/DL<content styleCode="Danni lics"> (NEGATIVE MG/DL)</conten t> pH of Urine by 4.5-8.0 <content [facility] Test strip styleCode="Federica Leona d">Urine pH Medical </content>7.0 Center <content styleCode="Danni lics"> (4.5-8.0 )</content> Urobilinogen 0.2-1.0 <content Saint [Units/volume] styleCode="Federica Seays in Urine by d">Urine Medical Test strip Urobilinogen Center </content>0.2 MG/DL<content styleCode="Danni lics"> (0.2-1.0 MG/DL)</conten t> Hemoglobin NEGATIVE <content Saint [Presence] in styleCode="Federica Seays Urine by Test d">Urine Blood Medical strip </content>NEGA Center TIVE <content styleCode="Danni lics"> (NEGATIVE )</content> Protein NEGATIVE <content Saint [Mass/volume] styleCode="Federica Seays in Urine by d">Urine Medical Test strip Protein Center </content>NEGA TIVE MG/DL<content styleCode="Danni lics"> (NEGATIVE MG/DL)</conten t> Nitrite NEGATIVE <content Saint [Presence] in styleCode="Federica Seays Urine by Test d">Urine Medical strip Nitrite Center </content>NEGA TIVE <content styleCode="Danni lics"> (NEGATIVE )</content> Leukocyte NEGATIVE <content Saint esterase styleCode="Federica Seays [Presence] in d">Urine Medical Urine by Test Leukocyte Center strip </content>NEGA TIVE <content styleCode="Danni lics"> (NEGATIVE )</content> ID Date Data Source Liver 06/23/2019 11:01:00 AM EST [facility] Profile.[id number] Name Value Range Interpretation Description Data Sup porting Code Source(s) Document(s ) Alanine 7-30 <content [facility] aminotransferase styleCode="Bold"> Hira hs [Enzymatic Alanine Medical activity/volume] Aminotransferase Center in Serum or Plasma (ALT) </content>30 IU/L<content styleCode="Italic s"> (7-30 IU/L)</content> Aspartate 14-36 <content [facility] aminotransferase styleCode="Bold"> Hira hs [Enzymatic Aspartate Medical activity/volume] Aminotransferase Center in Serum or Plasma (AST) </content>27 IU/L<content styleCode="Italic s"> (14-36 IU/L)</content> Bilirubin.total 0.2-1.3 <content Saint [Mass/volume] in styleCode="Bold"> Hira hs Serum or Plasma Bilirubin Total Medical </content>0.4 Center MG/DL<content styleCode="Italic s"> (0.2-1.3 MG/DL)</content> UNK 0.0-0.3 <content Saint styleCode="Bold"> Leona Bilirubin, Direct Medical </content>< 0.2 Center MG/DL<content styleCode="Italic s"> (0.0-0.3 MG/DL)</content> Alkaline 38-126 <content Saint phosphatase styleCode="Bold"> Leona [Enzymatic Alkaline Medical activity/volume] Phosphatase (ALP) Cente r in Serum or Plasma </content>116 IU/L<content styleCode="Italic s"> (38-126 IU/L)</content> Albumin 3.5-5.0 <content Saint [Mass/volume] in styleCode="Bold"> Hira hs Serum or Plasma Albumin Medical </content>4.5 Center G/DL<content styleCode="Italic s"> (3.5-5.0 G/DL)</content> ID Date Data Source HematologyRou.[id number] 06/23/2019 11:01:00 AM EULALIO Mathis [facility] 0500 Name Value Range Interpretation Description Data Sup porting Code Source(s) Document(s ) Hematocrit 36.0-46. <content Saint [Volume 0 styleCode="Bold Leona Fraction] of ">Hematocrit Medical Blood by </content>40.7 Center Automated count %<content styleCode="Ital ics"> (36.0-46.0 %)</content> Hemoglobin 12.3-16. <content Saint [Mass/volume] in 0 styleCode="Bold Leona Blood ">Hemoglobin Medical </content>13.7 Center G/DL<content styleCode="Ital ics"> (12.3-16.0 G/DL)</content> Erythrocytes 4.0-5.1 <content Saint [#/volume] in styleCode="Bold Leona Blood by ">Red Blood Medical Automated count Cell Count Center </content>4.57 MCUMM<content styleCode="Ital ics"> (4.0-5.1 MCUMM)</content > Leukocytes 4.4-11.0 <content Saint [#/volume] in styleCode="Bold Leona Blood by ">White Blood Medical Automated count Cell Count Center </content>5.48 KCUMM<content styleCode="Ital ics"> (4.4-11.0 KCUMM)</content > Erythrocyte mean 80.0-100 <content Saint corpuscular .0 styleCode="Bold Leona volume [Entitic ">Mean Medical volume] by Corpuscular Center Automated count Volume </content>89.1 FL<content styleCode="Ital ics"> (80.0-100.0 FL)</content> Erythrocyte mean 26.0-34. <content [facility] corpuscular 0 styleCode="Bold Leona hemoglobin ">Mean Medical [Entitic mass] Corposcular Center by Automated Hemoglobin count </content>30.0 PG<content styleCode="Ital ics"> (26.0-34.0 PG)</content> Erythrocyte mean 32.0-37. <content [facility] corpuscular 0 styleCode="Bold Leona hemoglobin ">Mean Corpus. Medical concentration Hgb Center [Mass/volume] by Concentration Automated count (MCHC) </content>33.7 G/DL<content styleCode="Ital ics"> (32.0-37.0 G/DL)</content> Platelets 130-400 <content Saint [#/volume] in styleCode="Bold Leona Blood by ">Platelet Medical Automated count Count Center </content>274 KCUMM<content styleCode="Ital ics"> (130-400 KCUMM)</content > Erythrocyte 11.5-14. <content Saint distribution 5 styleCode="Bold Leona width [Ratio] by ">Red Cell Medical Automated count Distribution Center Width </content>12.3 %<content styleCode="Ital ics"> (11.5-14.5 %)</content> Platelet mean 8.0-11.0 <content Saint volume [Entitic styleCode="Bold Leona volume] in Blood ">Mean Platelet Medical by Automated Volume Center count </content>10.2 FL<content styleCode="Ital ics"> (8.0-11.0 FL)</content> UNK 0 <content Saint styleCode="Bold Leona ">Nucleated Red Medical Blood Cell Center </content>0.0 /100<content styleCode="Ital ics"> (0 /100)</content> UNK 0.0 <content Saint styleCode="Bold Leona ">Nucleated Red Medical Blood Cell Center Count </content>0.00 KCUMM<content styleCode="Ital ics"> (0.0 KCUMM)</content > ID Date Data Source GFR(Creatinine).[id number] 06/23/2019 11:01:[address] [facility] 0-0500 Name Value Range Interpretation Code Description Data Sabiha rce(s) Supporting Document(s ) UNK > 60 <content [facility] styleCode="Bold"> Medical Cent er EGFR </content>108 GFR<content styleCode="Italic s"> (> 60 GFR)</content> ID Date Data Source CHMROUTINECCDA.[id number] 06/23/2019 11:01:00 AM [facility] -0500 Name Value Range Interpretation Description Data Sup porting Code Source(s) Document(s ) Lipase 23-300 <content [facility]ona [Enzymatic styleCode="Bold Medical activity/vo ">Lipase Center lume] in </content>55 Serum or IU/L<content Plasma styleCode="Ital ics"> (23-300 IU/L)</content> ID Date Data Source CardiacMarkers.[id number] 06/23/2019 11:01:00 AM [facility] -0500 Name Value Range Interpretation Description Data Sup porting Code Source(s) Document(s ) Troponin < 0.034 <content Saint I.cardiac styleCode="Bold Leona [Mass/volume ">Troponin I Medical ] in Serum </content>< Center or Plasma 0.012 NG/ML<content styleCode="Ital ics"> (< 0.034 NG/ML)</content > ID Date Data Source [id number] 06/23/2019 11:01:00 AM [facility] Name Value Range Interpretation Description Data Sup porting Code Source(s) Document(s ) Sodium 137-145 <content Saint [Moles/volume] in styleCode="Bold"> Dionicio phs Serum or Plasma Sodium Medical </content>137 Center MEQ/L<content styleCode="Italic s"> (137-145 MEQ/L)</content> Potassium 3.5-5.3 <content Saint [Moles/volume] in styleCode="Bold"> Dionicio phs Serum or Plasma Potassium Medical </content>3.9 Center MEQ/L<content styleCode="Italic s"> (3.5-5.3 MEQ/L)</content> UNK 7-17 <content Saint styleCode="Bold"> [place]ona BUN </content>8 Medical MG/DL<content Center styleCode="Italic s"> (7-17 MG/DL)</content> Carbon dioxide, 22-30 <content Saint total styleCode="Bold"> Leona [Moles/volume] in Carbon Dioxide Medical Serum or Plasma </content>25 Center MEQ/L<content styleCode="Italic s"> (22-30 MEQ/L)</content> Chloride 98-107 <content Saint [Moles/volume] in styleCode="Bold"> Dionicio phs Serum or Plasma Chloride Medical </content>103 Center MEQ/L<content styleCode="Italic s"> (98-107 MEQ/L)</content> Aspartate 14-36 <content [facility] aminotransferase styleCode="Bold"> Hira hs [Enzymatic Aspartate Medical activity/volume] Aminotransferase Center in Serum or Plasma (AST) </content>27 IU/L<content styleCode="Italic s"> (14-36 IU/L)</content> Creatinine 0.5-1.3 <content Saint [Mass/volume] in styleCode="Bold"> Hira hs Serum or Plasma Creatinine Medical </content>0.6 Center MG/DL<content styleCode="Italic s"> (0.5-1.3 MG/DL)</content> Glucose 74-106 Above high <content Saint [Mass/volume] in normal styleCode="Bold"> Hira hs Serum or Plasma Glucose Medical </content>110 Center MG/DL H<content styleCode="Italic s"> (74-106 MG/DL)</content> UNK > 60 <content Saint styleCode="Bold"> [place] EGFR Medical </content>108 Center GFR<content styleCode="Italic s"> (> 60 GFR)</content> Alanine 7-30 <content [facility] aminotransferase styleCode="Bold"> Hira hs [Enzymatic Alanine Medical activity/volume] Aminotransferase Center in Serum or Plasma (ALT) </content>30 IU/L<content styleCode="Italic s"> (7-30 IU/L)</content> Calcium 8.4-10. <content Saint [Mass/volume] in 2 styleCode="Bold"> Hira hs Serum or Plasma Calcium Medical </content>9.6 Center MG/DL<content styleCode="Italic s"> (8.4-10.2 MG/DL)</content> Bilirubin.total 0.2-1.3 <content Saint [Mass/volume] in styleCode="Bold"> Hira hs Serum or Plasma Bilirubin Total Medical </content>0.4 Center MG/DL<content styleCode="Italic s"> (0.2-1.3 MG/DL)</content> Albumin 3.5-5.0 <content Saint [Mass/volume] in styleCode="Bold"> Hira hs Serum or Plasma Albumin Medical </content>4.5 Center G/DL<content styleCode="Italic s"> (3.5-5.0 G/DL)</content> Alkaline 38-126 <content Saint phosphatase styleCode="Bold"> Leona [Enzymatic Alkaline Medical activity/volume] Phosphatase (ALP) Cente r in Serum or Plasma </content>116 IU/L<content styleCode="Italic s"> (38-126 IU/L)</content> ID Date Data Source [id number] 03/21/2019 10:55:00 AM EDT NEXT EN ([facility] [id number] [place]) Name Value Range Interpretation Code Description Data Sabiha rce(s) Supporting Document(s ) NEGATIVE NEGATIVE HCVAb [facility] ([facility]) ID Date Data Source [id number] 03/21/2019 10:55:00 AM EDT NEXT EN ([facility] [id number] [place]) Name Value Range Interpretation Code Description Data Sabiha rce(s) Supporting Document(s ) NON-REACTI NON-REACTI HIV 1+2 AB [facility] ([facility]) This test was run using the Sapients 5600 immunodiagnostic System. Theresults of the Vitros Anti-HIV 1 + 2 assay, in conjunction with otherserological evidenceand clinical information, may be used as an a id in the diagnosis ofinfection with HIV -1 and/or HIV-2 in persons with signs or symptoms of,or at risk for,HIV infection. If the result is Reactive, the result is PRELIMINARY, aconfirmatory test will f ollow, and the Confirmatory Result MUST beconsidered in making a diagnosis related to HIV infection. ID Date Data Source Liver 02/19/2019 12:47:00 PM EDT [facility] Profile.[id number] Name Value Range Interpretation Description Data Sup porting Code Source(s) Document(s ) Alanine 7-30 Above high <content Saint aminotransferase normal styleCode="Bold"> Hira hs [Enzymatic Alanine Medical activity/volume] Aminotransferase Center in Serum or Plasma (ALT) </content>37 IU/L H<content styleCode="Italic s"> (7-30 IU/L)</content> Alkaline 38-126 <content [facility] phosphatase styleCode="Bold"> [facility] [Enzymatic Alkaline Medical activity/volume] Phosphatase (ALP) Cente r in Serum or Plasma </content>118 IU/L<content styleCode="Italic s"> (38-126 IU/L)</content> Aspartate 14-36 <content [facility] aminotransferase styleCode="Bold"> Hira hs [Enzymatic Aspartate Medical activity/volume] Aminotransferase Center in Serum or Plasma (AST) </content>28 IU/L<content styleCode="Italic s"> (14-36 IU/L)</content> Bilirubin.total 0.2-1.3 <content Saint [Mass/volume] in styleCode="Bold"> Hira hs Serum or Plasma Bilirubin Total Medical </content>0.3 Center MG/DL<content styleCode="Italic s"> (0.2-1.3 MG/DL)</content> Albumin 3.5-5.0 <content Saint [Mass/volume] in styleCode="Bold"> Hira hs Serum or Plasma Albumin Medical </content>4.4 Center G/DL<content styleCode="Italic s"> (3.5-5.0 G/DL)</content> ID Date Data Source LIPID.[id number] 02/19/2019 12:47:00 PM EDT [facility] Name Value Range Interpretation Description Data Sup porting Code Source(s) Document(s ) Triglyceride < 150 <content Saint [Mass/volume] in styleCode="Federica [facility] Serum or Plasma d">Triglycerid Medical Center </content>123 MG/DL<content styleCode="Danni lics"> (< 150 MG/DL)</conten t> Cholesterol -<200 <content Saint [Mass/volume] in styleCode="Federica Leona Serum or Plasma d">Cholesterol Medical </content>189 Center MG/DL<content styleCode="Danni lics"> (-<200 MG/DL)</conten t> UNK > 60 Below low normal <content Saint styleCode="Federica Leona d">HDL- Medical Cholesterol Center </content>54 MG/DL L<content styleCode="Danni lics"> (> 60 MG/DL)</conten t> UNK < 100 Above high normal <content Saint styleCode="Federica Leona d">LDL-Cholest Medical shasta Center </content>110 MG/DL H<content styleCode="Danni lics"> (< 100 MG/DL)</conten t> ID Date Data Source Hormones.[id number] 02/19/2019 12:47:00 PM EDT [facility] Name Value Range Interpretation Description Data Sup porting Code Source(s) Document(s ) Thyrotropin 0.465-4. <content Saint [Units/volume] 68 styleCode="Federica Leona in Serum or d">Thyroid Medical Plasma by Stimulating Center Detection Hormone limit <= 0.05 </content>1.50 mIU/L MIU/L<content styleCode="Danni lics"> (0.465-4.68 MIU/L)</conten t> ID Date Data Source HematologyRou.[id number] 02/19/2019 12:47:[address] [facility] 0400 Name Value Range Interpretation Description Data Sup porting Code Source(s) Document(s ) Leukocytes 4.4-11.0 <content Saint [#/volume] in styleCode="Bold Leona Blood by ">White Blood Medical Automated count Cell Count Center </content>7.22 KCUMM<content styleCode="Ital ics"> (4.4-11.0 KCUMM)</content > Erythrocytes 4.0-5.1 <content Saint [#/volume] in styleCode="Bold Leona Blood by ">Red Blood Medical Automated count Cell Count Center </content>4.61 MCUMM<content styleCode="Ital ics"> (4.0-5.1 MCUMM)</content > Hematocrit 36.0-46. <content Saint [Volume 0 styleCode="Bold Leona Fraction] of ">Hematocrit Medical Blood by </content>42.2 Center Automated count %<content styleCode="Ital ics"> (36.0-46.0 %)</content> Hemoglobin 12.3-16. <content Saint [Mass/volume] in 0 styleCode="Bold Leona Blood ">Hemoglobin Medical </content>13.9 Center G/DL<content styleCode="Ital ics"> (12.3-16.0 G/DL)</content> Erythrocyte mean 32.0-37. <content Saint corpuscular 0 styleCode="Bold Leona hemoglobin ">Mean Corpus. Medical concentration Hgb Center [Mass/volume] by Concentration Automated count (MCHC) </content>32.9 G/DL<content styleCode="Ital ics"> (32.0-37.0 G/DL)</content> Erythrocyte mean 80.0-100 <content Saint corpuscular .0 styleCode="Bold Leona volume [Entitic ">Mean Medical volume] by Corpuscular Center Automated count Volume </content>91.5 FL<content styleCode="Ital ics"> (80.0-100.0 FL)</content> Erythrocyte mean 26.0-34. <content Saint corpuscular 0 styleCode="Bold Leona hemoglobin ">Mean Medical [Entitic mass] Corposcular Center by Automated Hemoglobin count </content>30.2 PG<content styleCode="Ital ics"> (26.0-34.0 PG)</content> Erythrocyte 11.5-14. <content Saint distribution 5 styleCode="Bold Leona width [Ratio] by ">Red Cell Medical Automated count Distribution Center Width </content>12.7 %<content styleCode="Ital ics"> (11.5-14.5 %)</content> Platelets 130-400 <content Saint [#/volume] in styleCode="Bold Leona Blood by ">Platelet Medical Automated count Count Center </content>293 KCUMM<content styleCode="Ital ics"> (130-400 KCUMM)</content > Neutrophils 36-66 <content Saint [#/volume] in styleCode="Bold Leona Blood by ">Neutrophil Medical Automated count </content>55.6 Center %<content styleCode="Ital ics"> (36-66 %)</content> UNK 1.6-7.3 <content Saint styleCode="Bold Leona ">Neutrophil Medical Count Center </content>4.01 KCUMM<content styleCode="Ital ics"> (1.6-7.3 KCUMM)</content > Platelet mean 8.0-11.0 <content Saint volume [Entitic styleCode="Bold Leona volume] in Blood ">Mean Platelet Medical by Automated Volume Center count </content>11.0 FL<content styleCode="Ital ics"> (8.0-11.0 FL)</content> UNK 1.0-4.8 <content Saint styleCode="Bold Leona ">Lymphocyte Medical Count Center </content>2.58 KCUMM<content styleCode="Ital ics"> (1.0-4.8 KCUMM)</content > Lymphocytes 24.0-44. <content Saint [#/volume] in 0 styleCode="Bold Leona Blood by ">Lymphocyte Medical Automated count </content>35.7 Center %<content styleCode="Ital ics"> (24.0-44.0 %)</content> UNK 0.2-0.9 <content Saint styleCode="Bold Leona ">Monocyte Medical Count Center </content>0.55 KCUMM<content styleCode="Ital ics"> (0.2-0.9 KCUMM)</content > Monocytes 3.0-10.0 <content Saint [#/volume] in styleCode="Bold Leona Blood by ">Monocyte Medical Automated count </content>7.6 Center %<content styleCode="Ital ics"> (3.0-10.0 %)</content> Eosinophils 0-5.0 <content Saint [#/volume] in styleCode="Bold Leona Blood by ">Eosinophil Medical Automated count </content>0.0 Center %<content styleCode="Ital ics"> (0-5.0 %)</content> Basophils 0.0-1.0 <content Saint [#/volume] in styleCode="Bold Leona Blood by ">Basophil Medical Automated count </content>0.8 Center %<content styleCode="Ital ics"> (0.0-1.0 %)</content> UNK 0.0-0.6 <content Saint styleCode="Bold Leona ">Eosinophil Medical Count Center </content>0.00 KCUMM<content styleCode="Ital ics"> (0.0-0.6 KCUMM)</content > UNK 0.0-0.3 <content Saint styleCode="Bold Leona ">Basophil Medical Count Center </content>0.06 KCUMM<content styleCode="Ital ics"> (0.0-0.3 KCUMM)</content > UNK 0.0 <content Saint styleCode="Bold Leona ">Nucleated Red Medical Blood Cell Center Count </content>0.00 KCUMM<content styleCode="Ital ics"> (0.0 KCUMM)</content > UNK 0 <content Saint styleCode="Bold Leona ">Nucleated Red Medical Blood Cell Center </content>0.0 /100<content styleCode="Ital ics"> (0 /100)</content> UNK 0-0.1 <content Saint styleCode="Bold Leona ">Immature Medical Granulocyte Center Count </content>0.02 KCUMM<content styleCode="Ital ics"> (0-0.1 KCUMM)</content > UNK < 1 <content Saint styleCode="Bold Leona ">Immature Medical Granulocyte Center Ratio </content>0.3 %<content styleCode="Ital ics"> (< 1 %)</content> ID Date Data Source GFR(Creatinine).[id number] 02/19/2019 12:47:00 PM [facility] Name Value Range Interpretation Code Description Data Sabiha rce(s) Supporting Document(s ) UNK > 60 <content [facility] styleCode="Bold"> Medical Cent er EGFR </content>108 GFR<content styleCode="Italic s"> (> 60 GFR)</content> ID Date Data Source ChemistrySpecia.[id number] 02/19/2019 12:47:[address] [facility] 0-0400 Name Value Range Interpretation Description Data Sup porting Code Source(s) Document(s ) Cobalamin 239-931 <content Saint (Vitamin B12) styleCode="Federica Leona [Mass/volume] d">Vitamin B12 Medical in Serum or </content>398 Center Plasma PG/ML<content styleCode="Danni lics"> (239-931 PG/ML)</conten t> ID Date Data Source CHMROUTINECCDA.[id number] 02/19/2019 12:47:[address] [facility] -0400 Name Value Range Interpretation Description Data Sup porting Code Source(s) Document(s ) UNK >= 1.0 <content Saint styleCode="Federcia Leona d">AG Ratio Medical </content>1.5 Center <content styleCode="Danni lics"> (>= 1.0 )</content> UNK Not <content Saint Established styleCode="Federica Leona d">[facility] n Center </content>0.4 mg/dL<content styleCode="Danni lics"> (Not Established mg/dL)</conten t> Protein 6.3-8.2 <content Saint [Mass/volu styleCode="Federica Leona me] in d">Total Medical Serum or Protein Center Plasma </content>7.4 G/DL<content styleCode="Danni lics"> (6.3-8.2 G/DL)</content > UNK 2.3-3.5 <content Saint styleCode="Federica Leona d">Globulin Medical </content>3.0 Center G/DL<content styleCode="Danni lics"> (2.3-3.5 G/DL)</content > ID Date Data Source [facility].[id number] 02/19/2019 12:47:00 PM EDT [facility] Name Value Range Interpretation Description Data Sup porting Code Source(s) Document(s ) Sodium 137-145 <content Saint [Moles/volume] in styleCode="Bold"> Dionicio phs Serum or Plasma Sodium Medical </content>142 Center MEQ/L<content styleCode="Italic s"> (137-145 MEQ/L)</content> Potassium 3.5-5.3 <content Saint [Moles/volume] in styleCode="Bold"> Dionicio phs Serum or Plasma Potassium Medical </content>4.2 Center MEQ/L<content styleCode="Italic s"> (3.5-5.3 MEQ/L)</content> Chloride 98-107 <content Saint [Moles/volume] in styleCode="Bold"> Dionicio phs Serum or Plasma Chloride Medical </content>103 Center MEQ/L<content styleCode="Italic s"> (98-107 MEQ/L)</content> Carbon dioxide, 22-30 <content Saint total styleCode="Bold"> Leona [Moles/volume] in Carbon Dioxide Medical Serum or Plasma </content>27 Center MEQ/L<content styleCode="Italic s"> (22-30 MEQ/L)</content> Creatinine 0.5-1.3 <content Saint [Mass/volume] in styleCode="Bold"> Hira hs Serum or Plasma Creatinine Medical </content>0.6 Center MG/DL<content styleCode="Italic s"> (0.5-1.3 MG/DL)</content> UNK 7-17 <content Saint styleCode="Bold"> [place]ona BUN </content>13 Medical MG/DL<content Center styleCode="Italic s"> (7-17 MG/DL)</content> Glucose 74-106 <content Saint [Mass/volume] in styleCode="Bold"> Hira hs Serum or Plasma Glucose Medical </content>95 Center MG/DL<content styleCode="Italic s"> (74-106 MG/DL)</content> UNK > 60 <content Saint styleCode="Bold"> [place] EGFR Medical </content>108 Center GFR<content styleCode="Italic s"> (> 60 GFR)</content> Calcium 8.4-10. <content Saint [Mass/volume] in 2 styleCode="Bold"> Hira hs Serum or Plasma Calcium Medical </content>10.2 Center MG/DL<content styleCode="Italic s"> (8.4-10.2 MG/DL)</content> Alkaline 38-126 <content Saint phosphatase styleCode="Bold"> [place] [Enzymatic Alkaline Medical activity/volume] Phosphatase (ALP) Cente r in Serum or Plasma </content>118 IU/L<content styleCode="Italic s"> (38-126 IU/L)</content> Alanine 7-30 Above high <content Saint aminotransferase normal styleCode="Bold"> Hira hs [Enzymatic Alanine Medical activity/volume] Aminotransferase Center in Serum or Plasma (ALT) </content>37 IU/L H<content styleCode="Italic s"> (7-30 IU/L)</content> Aspartate 14-36 <content Saint aminotransferase styleCode="Bold"> Hira hs [Enzymatic Aspartate Medical activity/volume] Aminotransferase Center in Serum or Plasma (AST) </content>28 IU/L<content styleCode="Italic s"> (14-36 IU/L)</content> Albumin 3.5-5.0 <content Saint [Mass/volume] in styleCode="Bold"> Hira hs Serum or Plasma Albumin Medical </content>4.4 Center G/DL<content styleCode="Italic s"> (3.5-5.0 G/DL)</content> Bilirubin.total 0.2-1.3 <content Saint [Mass/volume] in styleCode="Bold"> Hira hs Serum or Plasma Bilirubin Total Medical </content>0.3 Center MG/DL<content styleCode="Italic s"> (0.2-1.3 MG/DL)</content> ID Date Data Source [id number] 02/19/2019 12:47:00 PM EDT NEXTG EN ([facility] [id number] [place]) Name Value Range Interpretation Code Description Data Sabiha rce(s) Supporting Document(s ) 398 PG/ML [id number] VITAMIN B12 [facility] ([facility]) ID Date Data Source [id number] 02/19/2019 12:47:00 PM EDT NEXTG EN ([facility] [id number] [place]) Name Value Range Interpretation Code Description Data Sabiha rce(s) Supporting Document(s ) 1.50 MIU/L 0.465-4.68 TSH [facility] ([facility]) ID Date Data Source [id number] 02/19/2019 12:47:00 PM EDT NEXTG EN ([facility] [id number] [place]) Name Value Range Interpretation Code Description Data Sabiha rce(s) Supporting Document(s ) 110 MG/DL < 100 Above high normal LDL- CALC [facility]) 123 MG/DL < 150 TRIGLYCERIDES [facility] ([facility]) 189 MG/DL <200 CHOLESTEROL [facility] ([facility]) 54 MG/DL > 60 Below low normal HDL- CHOL [facility] ([facility]) ID Date Data Source [id number] 02/19/2019 12:47:00 PM EDT [facility] EN ([facility] [id number] [place]) Name Value Range Interpretation Description Data Sup porting Code Source(s) Document(s ) 142 MEQ/L 137-145 SODIUM [facility] ([facility]) 103 MEQ/L 98-107 CHLORIDE [facility] ([facility]) 27 MEQ/L 22-30 CARBON DIOXIDE [facility] ([facility]) 4.2 MEQ/L 3.5-5.3 POTASSIUM [facility] ([facility]) 7.4 G/DL 6.3-8.2 TOTAL PROTEIN [facility] ([facility]) 3.0 G/DL 2.3-3.5 GLOBULIN [facility]) 4.4 G/DL 3.5-5.0 ALBUMIN [facility] ([facility]) 28 IU/L 14-36 AST (GOT) [facility] ([facility]) 1.5 >= 1.0 AG RATIO [facility] ([facility]) 37 IU/L 7-30 Above high normal ALT [facility] ([facility]) 118 IU/L 38-126 ALP [facility] ([facility]) 10.2 MG/DL 8.4-10.2 CALCIUM [facility] ([facility]) 108 GFR > 60 eGFR [facility] ([facility]) Estimated GFR is calculated using the Mo dification of Diet in RenalDisease (MDRD) Study equation, and normalized to 1.73m2 body surfce area.The MDRD study equation should only be used in individuals age 18 orolder. It has not been validated f or the following: women,patients with serious comorbid conditions, or on certain medications, orpersons with extremes of body size, muscle mass, or nutritional status. 13 MG/DL 7-17 BUN [facility] ([facility]) 0.3 MG/DL 0.2-1.3 BILI, TOTAL [facility] ([facility]) 95 MG/DL 74-106 GLUCOSE [facility] ([facility]) 0.6 MG/DL 0.5-1.3 CREATININE [facility] ([facility]) ID Date Data Source [id number] 02/19/2019 12:47:00 PM EDT NEXT[facility] EN ([facility] [id number] [place]) Name Value Range Interpretation Code Description Data Sabiha rce(s) Supporting Document(s ) 26.4 NG/ML 25-OH VITAMIN D [facility] ([facility]ardo t [facility]) Deficient <20 ng/mLInsufficient 20 - <30 ng/mLSufficient 30 - 100 ng/mLPotential Toxicity >100 ng/mL

ID Date Data Source [id number] 02/19/2019 12:47:00 PM EDT [facility]EXT[facility] EN ([facility] [id number] [place]) Name Value Range Interpretation Code Description Data Sabiha rce(s) Supporting Document(s ) 123 MG/DL < 150 TRIGLYCERIDES [facility] ([facility]) 54 MG/DL > 60 Below low normal HDL- CHOL [facility] ([facility]) ID Date Data Source [id number] 02/19/2019 12:47:00 PM EDT [facility]EXT[facility] EN ([facility] [id number] [place]) Name Value Range Interpretation Description Data Sup porting Code Source(s) Document(s ) 142 MEQ/L 137-145 SODIUM [facility] ([facility]) 103 MEQ/L 98-107 CHLORIDE [facility] ([facility]) 27 MEQ/L 22-30 CARBON DIOXIDE [facility] ([facility]) 4.4 G/DL 3.5-5.0 ALBUMIN [facility] ([facility]) 28 IU/L 14-36 AST (GOT) [facility] ([facility]) 7.4 G/DL 6.3-8.2 TOTAL PROTEIN [facility] ([facility]) 37 IU/L 7-30 Above high normal ALT [facility] ([facility]) 10.2 MG/DL 8.4-10.2 CALCIUM [facility] ([facility]) 118 IU/L 38-126 ALP [facility] ([facility]) 13 MG/DL 7-17 BUN [facility] ([facility]) 0.6 MG/DL 0.5-1.3 CREATININE [facility] ([facility]) 0.3 MG/DL 0.2-1.3 BILI, TOTAL [facility] ([facility]) 95 MG/DL 74-106 GLUCOSE [facility] ([facility]) ID Date Data Source [id number] 02/19/2019 12:47:00 PM EDT NEXT[facility] EN ([facility] [id number] [place]) Name Value Range Interpretation Code Description Data Sabiha rce(s) Supporting Document(s ) 7.22 KCUMM 4.4-11.0 WBC [facility] ([facility]) 13.9 G/DL 12.3-16.0 HGB [facility] ([facility]) 4.61 MCUMM 4.0-5.1 RBC [facility] ([facility]) 30.2 PG 26.0-34.0 MCH [facility] ([facility]) 42.2 % 36.0-46.0 HCT [facility] ([facility]) 91.5 FL 80.0-100.0 MCV [facility] ([facility]) 12.7 % 11.5-14.5 RDW [facility] 293 KCUMM 130-400 PLT [facility] ([facility]) 32.9 G/DL 32.0-37.0 MCHC [facility] ([facility]) 11.0 FL 8.0-11.0 MPV [facility] ([facility]) 0.0 /100 0 NRBC% [facility] ([facility]) New parameters included in the report o f automated CBCNRBC(%/#) Is a direct count of Nucleated Red Blood cell, and will bereported with every CBC count. WBC will automatically be corrected withthe presence of NRBC. 0.00 KCUMM 0.0 NRBC ABS# [facility]) 35.7 % 24.0-44.0 LYMPHOCYTE % [facility] ([facility]) 55.6 % 36-66 NEUTROPHIL % [facility] ([facility]) 0.0 % 0-5.0 EOSINOPHIL % [facility] ([facility]) 7.6 % 3.0-10.0 MONOCYTE % [facility] ([facility]) 4.01 KCUMM 1.6-7.3 NEUTROPHIL ABS# [facility] ([facility]) 0.8 % 0.0-1.0 BASOPHIL % [facility] ([facility]) 2.58 KCUMM 1.0-4.8 LYMPHOCYTE ABS# [facility] ([facility]) 0.55 KCUMM 0.2-0.9 [facility]OCYTE ABS# [facility]) 0.00 KCUMM 0.0-0.6 EOSINOPHIL ABS# [facility] ([facility]) 0.06 KCUMM 0.0-0.3 BASOPHIL ABS# [facility] ([facility]) 0.02 KCUMM 0-0.1 IG ABS# [facility] ([facility]) New parameters included in the report o f automated CBC/DIFF.IG:(%/#) Immature Granulocytes ,includes the presence of (Metamyelocyte,Myelocyte,and Promyelocyte) 0.3 % < 1 IG% [facility] ([facility]) ID Date Data Source [id number] 02/19/2019 12:47:00 PM EDT NEXTG EN ([facility] [id number] [place]) Name Value Range Interpretation Code Description Data Sabiha rce(s) Supporting Document(s ) 7.22 KCUMM 4.4-11.0 WBC [facility]) 13.9 G/DL 12.3-16.0 HGB [facility] ([facility]) 4.61 MCUMM 4.0-5.1 RBC [facility] ([facility]) 91.5 FL 80.0-100.0 MCV [facility]) 42.2 % 36.0-46.0 HCT [facility]) 12.7 % 11.5-14.5 RDW [facility]) 32.9 G/DL 32.0-37.0 MCHC [facility]) 30.2 PG 26.0-34.0 MCH [facility]) 11.0 FL 8.0-11.0 MPV [facility]) 293 KCUMM 130-400 PLT [facility]) 0.0 /100 0 NRBC% [facility] ([facility]) New parameters included in the report o f automated CBCNRBC(%/#) Is a direct count of Nucleated Red Blood cell, and will bereported with every CBC count. WBC will automatically be corrected withthe presence of NRBC. 0.00 KCUMM 0.0 NRBC ABS# [facility] ([facility]) 35.7 % 24.0-44.0 LYMPHOCYTE % [facility] ([facility]) 55.6 % 36-66 NEUTROPHIL % [facility]) 4.01 KCUMM 1.6-7.3 NEUTROPHIL ABS# [facility] ([facility]) 0.0 % 0-5.0 EOSINOPHIL % [facility] ([facility]) 7.6 % 3.0-10.0 MONOCYTE % [facility] ([facility]) 2.58 KCUMM 1.0-4.8 LYMPHOCYTE ABS# [facility] ([facility]) 0.55 KCUMM 0.2-0.9 MONOCYTE ABS# [facility] ([facility]) 0.06 KCUMM 0.0-0.3 BASOPHIL ABS# [facility] ([facility]) 0.00 KCUMM 0.0-0.6 EOSINOPHIL ABS# [facility] ([facility]) 0.02 KCUMM 0-0.1 IG ABS# [facility] ([facility]) New parameters included in the report o f automated CBC/DIFF.IG:(%/#) Immature Granulocytes ,includes the presence of (Metamyelocyte,Myelocyte,and Promyelocyte) 0.3 % < 1 IG% [facility] ([facility]) ID Date Data Source [id number] 02/19/2019 12:47:00 PM EDT [facility] EN ([facility] [id number] Center) Name Value Range Interpretation Description Data Sup porting Code Source(s) Document(s ) 0.4 mg/dL Not MALB [facility] Established ([facility]) 11 mcg/m <30 MALB:CR RATIO [facility] ([facility]) The ADA defines abnormalities in albumin excretion asfollows:Category: Result (mcg/mg creatinine)Normal <30Microalbuminuria 30-299Clinical albuminuria > or = 30 0The ADA recommends that at least two of three specimenscollected within a 3-6 mo nth period be abnormal beforeconsidering a patient to be within a diagnostic catego ry.

36 mg/dL 20-275 CREATININE, RANDOM URINE [facility]) Procedure Social History Code Duration Value Status Description Data Source(s ) Caffeine Use 08/17/2019 coffee, 1 cup completed coffee, 1 cup [facility] N ([facility] 12:00:00 AM EDT [facility]) 08/17/2019 Never smoked completed Never smoked [facility] (S aint 12:00:00 AM EDT tobacco tobacco [facility]) Smoking 08/17/2019 Unknown if completed Unknown if ever [facility] ( [facility] 12:00:00 AM EDT ever smoked smoked [facility]) Smoking 06/23/2019 Denies Ever completed Denies Ever [place] [facility] 11:07:00 AM EST Smoked Smoked Medical [facility] enter Smoking 06/23/2019 Denies Ever completed Denies Ever [place] [facility] 11:00:00 AM EST Smoked Smoked Medical [facility] enter Smoking 06/23/2019 Denies Ever completed Denies Ever [place] [facility] 10:23:00 AM EST Smoked Smoked Medical [facility] enter Vital Signs ID Date Data Source UNK Name Value Range Interpretation Code Description Data Source(s) Oxygen saturation 98 % 98 % [facility] ([facility] in Arterial blood [facility] by Pulse oximetry Center) Body mass index 29.55 kg/m2 Overweight 29.55 kg/m2 [facility] ([facility] (BMI) [Ratio] [facility]) Respiratory rate 18 /min 18 /min [facility] ([facility]) Heart rate 92 /min 92 /min [facility] Diastolic blood 68 mm[Hg] 68 mm[Hg] [facility] ( [facility]) Systolic blood 125 mm[Hg] 125 mm[Hg] [facility] (S aint pressure [facility]) Body weight 74.480 kg 74.480 kg [facility] ([facility]) Body height 158.75 cm 158.75 cm [facility] Oxygen saturation 96 % 96 % [facility] ([facility] in Arterial blood [facility] by Pulse oximetry Center) Body mass index 29.16 kg/m2 Overweight 29.16 kg/m2 [facility] ([facility] (BMI) [Ratio] [facility]) Respiratory rate 19 /min 19 /min [facility] Body temperature 36.28 Lady 36.28 Lady [facility] ([facility]) Heart rate 108 /min 108 /min [facility] ([facility]) Diastolic blood 70 mm[Hg] 70 mm[Hg] [facility]) Systolic blood 128 mm[Hg] 128 mm[Hg] [facility] (S [facility] pressure [facility]) Body weight 73.482 kg 73.482 kg [facility] Body height 158.75 cm 158.75 cm [facility] ([facility]) Oxygen saturation 97 % 97 % [facility] ([facility] in Arterial [facility] by Pulse oximetry Center) Body mass index 29.27 kg/m2 Overweight 29.27 kg/m2 [facility] ([facility] (BMI) [Ratio] [facility]) Respiratory rate 18 /min 18 /min [facility] ([facility]) Body temperature 36.94 Lady 36.94 Lady [facility] ([facility]) Heart rate 98 /min 98 /min [facility] ([facility]) Diastolic blood 80 mm[Hg] 80 mm[Hg] [facility] ( [facility]) Systolic blood 133 mm[Hg] 133 mm[Hg] [facility]) Body weight 73.754 kg 73.754 kg [facility]) Body height 158.75 cm 158.75 cm [facility] ([facility]) Body temperature 37.552554 37.297658 [facility] Respiratory rate 19 /min 19 /min [facility] Oxygen saturation 98 % 98 % [facility] blood [facility] by Pulse oximetry Heart rate 86 /min 86 /min [facility] Diastolic blood 56 mm[Hg] 56 mm[Hg] [facility] Systolic blood 126 mm[Hg] 126 mm[Hg] [facility] Body temperature 37.414956 37.529030 [facility] Respiratory rate 17 /min 17 /min [facility] Oxygen saturation 99 % 99 % [facility] by Pulse oximetry Heart rate 83 /min 83 /min [facility] Diastolic blood 73 mm[Hg] 73 mm[Hg] [facility] Systolic blood 155 mm[Hg] 155 mm[Hg] [facility] Body weight 90.826687 kg 90.890741 kg [facility] Body temperature 36.899638 36.620340 [facility] Respiratory rate 18 /min 18 /min [facility] Oxygen saturation 99 % 99 % [facility] in [facility] by Pulse oximetry Heart rate 88 /min 88 /min [facility] Body height 162.491801 162.782230 cm [facility] Diastolic blood 76 mm[Hg] 76 mm[Hg] [facility] pressure Medical Center Systolic blood 132 mm[Hg] 132 mm[Hg] [facility] Body mass index 34.0 kg/m2 34.0 kg/m2 [facility] (BMI) [Ratio] Medical [facility] ter Respiratory rate 18 /min 18 /min [facility] ([facility]) Body temperature 36.94 Lady 36.94 Lady [facility] ([facility]) Heart rate 94 /min 94 /min [facility] ([facility]) Diastolic blood 76 mm[Hg] 76 mm[Hg] [facility] ( [facility]) Systolic blood 122 mm[Hg] 122 mm[Hg] [facility]) Body weight 74.389 kg 74.389 kg [facility] ([facility]) Body height 158.75 cm 158.75 cm [facility] ([facility]) Oxygen saturation 99 % 99 % [facility] Arterial [facility] by Pulse oximetry Center) Body mass index 29.52 kg/m2 Overweight 29.52 kg/m2 [facility] ([facility] (BMI) [Ratio] [facility]) Oxygen saturation 98 % 98 % [facility] ([facility] Arterial [facility] by Pulse oximetry Center) Body mass index 30.24 kg/m2 Overweight 30.24 kg/m2 [facility] ([facility] (BMI) [Ratio] [facility]) Respiratory rate 19 /min 19 /min [facility] ([facility]) Body temperature 36.67 Lady 36.67 Lady [facility] ([facility]) Heart rate 96 /min 96 /min [facility] ([facility]) Diastolic blood 78 mm[Hg] 78 mm[Hg] [facility] ( [facility]) Systolic blood 124 mm[Hg] 124 mm[Hg] [facility] (S aint pressure [facility]) Body weight 76.204 kg 76.204 kg [facility] ([facility]) Body height 158.75 cm 158.75 cm [facility]) Oxygen saturation 95 % 95 % [facility] ([facility] in Arterial blood [facility] by Pulse oximetry Center) Body mass index 30.42 kg/m2 Overweight 30.42 kg/m2 [facility] ([facility] (BMI) [Ratio] [facility]) Respiratory rate 18 /min 18 /min [facility] ([facility]) Body temperature 36.78 Lady 36.78 Lady [facility]) Heart rate 85 /min 85 /min [facility]) Diastolic blood 69 mm[Hg] 69 mm[Hg] [facility] ( [facility]) Systolic blood 115 mm[Hg] 115 mm[Hg] [facility] (S nt [facility]) Body weight 76.657 kg 76.657 kg [facility]) Body height 158.75 cm 158.75 cm [facility] ([facility]) Oxygen saturation 99 % 99 % [facility] ([facility] in Arterial [facility] by Pulse oximetry Center) Body mass index 30.53 kg/m2 Overweight 30.53 kg/m2 [facility] ([facility] (BMI) [Ratio] [facility]) Respiratory rate 19 /min 19 /min [facility]) Body temperature 36.17 Lady 36.17 Lady [facility]) Heart rate 89 /min 89 /min [facility] ([facility]) Diastolic blood 84 mm[Hg] 84 mm[Hg] [facility] ( [facility] Systolic blood 144 mm[Hg] 144 mm[Hg] [facility] (S aint pressure [facility]) Body weight 76.929 kg 76.929 kg [facility]) Body height 158.75 cm 158.75 cm [facility] ([facility]) Patient Treatment Plan of Care Planned Activity Planned Date Details Description Data Source (s) Aspirin 81 MG Delayed 08/17/2019 N[facility] N ([facility] Release Oral Tablet 12:00:[address] [facility]) Metformin hydrochloride 500 08/17/2019 N[facility] ([facility] MG Oral Tablet 12:00:00 AM [facility]) atorvastatin 80 MG Oral 08/17/2019 NEXT GEN ([facility] Tablet 12:00:00 AM [facility]) Meclizine Hydrochloride 25 08/17/2019 N EXTGEN ([facility] MG Oral Tablet 12:00:00 AM [facility]) pantoprazole 20 MG Delayed 08/17/2019 N EXTGEN (Saint Release Oral Tablet 12:00:[address] [facility]) 120 ACTUAT Fluticasone 07/30/2019 NEXTG EN (Saint propionate 0.11 MG/ACTUAT 12:00:00 AM [facility] Metered Dose Inhaler [place]) [Flovent] NITROFURANTOIN, 07/30/2019 NEXTGEN (Del nt MACROCRYSTALS 25 MG / 12:00:00 AM [facility] Nitrofurantoin, Monohydrate Center) 75 MG Oral Capsule [Macrobid] 200 ACTUAT Albuterol 0.09 07/04/2019 NE XTGEN (Saint MG/ACTUAT Metered Dose 12:00:00 AM [facility] Medical Inhaler [Ventolin] Center) Famotidine 20 MG Oral 07/04/2019 NEXTGE N (Saint Tablet 12:00:00 AM [facility]) Ibuprofen 600 MG Oral 07/04/2019 NEXTGE N (Saint Tablet 12:00:00 AM [facility]) atorvastatin 80 MG Oral 03/21/2019 NEXT GEN (Saint Tablet 12:00:00 AM [facility]) Meclizine Hydrochloride 25 03/21/2019 N EXTGEN (Saint MG Oral Tablet 12:00:00 AM [facility]) Glycerin 2.5 MG/ML / 03/21/2019 NEXTGEN (Saint Naphazoline Hydrochloride 12:00:00 AM [facility] 0.12 MG/ML / Zinc Sulfate Ce nter) 2.5 MG/ML Ophthalmic Solution Flonase Allergy Relief 50 02/20/2019 NE XTGEN ([facility] 120 ACTUAT Fluticasone 02/20/2019 NEXTG EN (Saint propionate 0.11 MG/ACTUAT 12:00:00 AM [facility] Metered Dose Inhaler Center) [Flovent] 200 ACTUAT Albuterol 0.09 02/20/2019 NE XTGEN (Saint MG/ACTUAT [facility]) Calcium Carbonate 1250 MG / 02/19/2019 NEXTGEN (Saint Cholecalciferol 125 UNT 12:00:00 AM [facility] Oral Tablet Center) 200 ACTUAT Albuterol 0.09 02/19/2019 NE XTGEN (Saint MG/ACTUAT Metered Dose 12:00:00 AM [facility] Inhaler [[facility] Center) 120 ACTUAT Fluticasone 02/19/2019 NEXTG EN (Saint propionate 0.11 MG/ACTUAT 12:00:00 AM [facility] Metered Dose Inhaler Center) [Flovent] 120 ACTUAT Fluticasone 02/19/2019 NEXTG EN (Saint propionate 0.044 MG/ACTUAT 12:00:00 AM [facility] Metered Dose Inhaler Center) [Flovent] Flonase Allergy Relief 50 02/19/2019 NE XTGEN (Saint [facility] Aspirin 81 MG Delayed 12/20/2018 NEXTGE N ([facility] Release Oral Tablet 12:00:[address] [facility]) Metformin hydrochloride 500 12/20/2018 NEXTGEN [facility] at[facility] MG Oral 12/20/2018 NEXT GEN ([facility] Tablet 12:00:00 AM [facility]) Glycerin 2.5 MG/ML / 12/20/2018 NEXTGEN ([facility] Naphazoline Hydrochloride 12:00:00 AM [facility] 0.12 MG/ML / Zinc Sulfate Ce nter) 2.5 MG/ML Ophthalmic Solution Meclizine Hydrochloride 25 12/20/2018 N EXTGEN ([facility] MG Oral Tablet 12:00:00 AM EDT [facility]) 120 ACTUAT Fluticasone 12/20/2018 NEXTG EN ([facility] propionate 0.044 MG/ACTUAT 12:00:00 AM T [facility] Metered Dose Inhaler Center) [Flovent] 200 ACTUAT Albuterol 0.09 09/20/2018 NE XTGEN ([facility] MG/ACTUAT Metered Dose 12:00:00 AM EDT [facility] Inhaler [Ventolin] Center) Flonase Allergy Relief 50 09/20/2018 NE XTGEN ([facility] mcg/actuation nasal 12:00:00 AM EDT [facility])
[2020-03-16 15:07] VITALS: BP 156/75; PULSE 90; TEMP 98.4; BMI 27.8
--- NOTE | 2020-03-16 15:22 | PDOC ---
History of Present Illness - General Chief Complaint: Back Pain Stated Complaint: BACK PAIN Time Seen by Provider: 03/16/20 14:58 History Source: Patient - History of Present Illness Initial Comments: 03/16/20 15:35 64F w/hx HTN, HLD, DM p/w acute onset R sided neck and shoulder pain. She reports that the pain began last night, and she had difficulty sleeping due to being unable to find a position of comfort. She reports being prescribed muscle relaxants by her PCP, however her prescription ran out last week and she was unable to have them refilled so far. She reports pain worsens with movement of the R shoulder. She denies any chest pain, difficulty breathing, injuries, falls, or rashes. Past History - Medical History Allergies/Adverse Reactions: Allergies Allergy/AdvReac Type Severity Reaction Status Date / Time No Known Allergies Allergy Verified 03/16/20 15:17 Home Medications: Ambulatory Orders Albuterol Sulfate [Albuterol Sulfate Hfa] 1 - 2 inh IH QID PRN 03/16/20 Cyclobenzaprine HCl [Flexeril 10 mg] 5 mg PO BID PRN 7 Days #14 tablet 03/16/20 Fluticasone Propionate [Flovent Hfa] 44 mcg IH BID 03/16/20 Asthma: Yes COPD: No Dementia: Yes HTN: Yes Hypercholesterolemia: Yes - Immunization History Immunization Up to Date: Yes - Psycho-Social/Smoking History Smoking History: Never smoked - Substance Abuse Hx (Audit-C & DAST Scrn) How often the patient has a drink containing alcohol: Never Score: In Men: 4 or > Positive; In Women: 3 or > Positive: 0 Screen Result (Pos requires Nsg. Audit-10AR): Negative In the last yr the pt used illegal drug/Rx for NonMed reason: No Score: Yes response is considered Positive: 0 Screen Result (Positive result requires Nsg. DAST-10): Negative Review of Systems - Review of Systems Able to Perform ROS?: Yes Comments:: 03/16/20 18:11 GENERAL/CONSTITUTIONAL: No fever or chills. No weakness. HEAD, EYES, EARS, NOSE AND THROAT: No change in vision. No ear pain or discharge. No sore throat. CARDIOVASCULAR: No chest pain or shortness of breath RESPIRATORY: No cough, wheezing, or hemoptysis. GASTROINTESTINAL: No nausea, vomiting, diarrhea or constipation. GENITOURINARY: No dysuria, frequency, or change in urination. MUSCULOSKELETAL: R shoulder, R sided neck pain. No other joint or muscle swelling or pain. No back pain. SKIN: No rash NEUROLOGIC: No headache, vertigo, loss of consciousness, or change in strength/sensation. ENDOCRINE: No increased thirst. No abnormal weight change HEMATOLOGIC/LYMPHATIC: No anemia, easy bleeding, or history of blood clots. ALLERGIC/IMMUNOLOGIC: No hives or skin allergy. *Physical Exam - Vital Signs Last Vital Signs Temp Pulse Resp BP Pulse Ox 98.4 F 90 18 156/75 99 03/16/20 15:01 03/16/20 15:01 03/16/20 15:01 03/16/20 15:01 03/16/20 15:01 - Physical Exam 03/16/20 18:12 GENERAL: Awake, alert, and fully oriented, in no acute distress HEAD: No signs of trauma, normocephalic, atraumatic EYES: PERRLA, EOMI, sclera anicteric, conjunctiva clear ENT: Auricles normal inspection, hearing grossly normal, nares patent, oropharynx clear without exudates. Moist mucosa NECK: Normal ROM, supple, no lymphadenopathy, JVD, or masses LUNGS: No distress, speaks full sentences, clear to auscultation bilaterally HEART: Regular rate and rhythm, normal S1 and S2, no murmurs, rubs or gallops, peripheral pulses normal and equal bilaterally. ABDOMEN: Soft, nontender, normoactive bowel sounds. No guarding, no rebound. No masses EXTREMITIES : R shoulder ROM limited by pain. Tenderness to R trapezius distribution. Normal inspection, Normal range of motion of other extremities, no edema. No clubbing or cyanosis. No rash. No tenderness to soft touch. NEUROLOGICAL: Cranial nerves II through XII grossly intact. Normal speech, normal gait, no focal sensorimotor deficits SKIN: Warm, Dry, normal turgor, no rashes or lesions noted Medical Decision Making - Medical Decision Making 03/16/20 18:13 64F p/w R shoulder, R sided neck pain consistent with trapezius muscle spasm vs torticollis. Early shingles possible, although current distribution of tenderness appears to cross multiple dermatomes. Plan: 5mg Flexaril Reassessment Dispo: Discharge --- On reassessment, patient reports rapid resolution of symptoms s/p medication. Plan for discharge with close PCP follow up. Discharge - Discharge Information Problems reviewed: Yes Clinical Impression/Diagnosis: Muscle spasm Condition: Stable Disposition: HOME - Admission No - Additional Discharge Information Prescriptions: Cyclobenzaprine HCl [Flexeril 10 mg] 5 mg PO BID PRN 7 Days #14 tablet PRN Reason: Muscle Spasms - Follow up/Referral Referrals: Aleida Hagen MD [Primary Care Provider] - - Patient Discharge Instructions Patient Printed Discharge Instructions: DI for Muscle Spasm Additional Instructions: You were seen in the ER for muscle pain. Your symptoms improved with medication. Take the flexeril as directed, until you are able to see your primary care p hysician for refill. Return to the ER if you are unable to walk, have chest pain, high fevers, or difficulty breathing. Print Language: [id number] - Post Discharge Activity
[2020-03-16] MEDS ORDERED: CYCLOBENZAPRINE HCL 5 MG TABLET PO ONE (15:51)
[2020-03-16] MEDS ORDERED: CYCLOBENZAPRINE HCL 10 MG TABLET (FP) ONE (16:07)
--- NOTE | 2020-03-16 16:21 | PDOC ---
Documentation entered by Sean Phelps SCRIBE, acting as scribe for Robert Bird MD. Robert Bird MD: This documentation has been prepared by the vickie, Sean Phelps SCRIBE, under my direction and personally reviewed by me in its entirety. I confirm that the documentation accurately reflects all work, treatment, procedures, and medical decision making performed by me. Attending Attestation - Resident Resident Name: JunaidArvin - ED Attending Attestation I have performed the following: I have examined & evaluated the patient, The case was reviewed & discussed with the resident, I agree w/resident's findings & plan, Exceptions are as noted - HPI HPI: 03/16/20 15:59 The patient is a 64 year old female with a significant past medical history of asthma, dementia, DM, HTN, and HLD who presents to the emergency department for evaluation of right neck and shoulder pain that began this morning. Pt reports that she has chronic neck pain in the same area and usually take a muscle relaxant that she ran out of 3 days ago. Pt states the pain is exactly the same as it usually is. Denies any new symptoms. The patient denies chest/abdominal/back pain, cough, and shortness of breath. Denies fever, chills, nausea, vomiting, and/or any GI symptoms. Denies any symptoms. Denies any other symptoms. Allergies: NKA Social Hx: None reported Surgical Hx: None reported PCP: Dr. Hagen - Physicial Exam PE: 03/16/20 15:07 See resident exam - Medical Decision Making 03/16/20 16:24 64 F with neck pain, likely muscle spasm/torticollis. No neuro deficits, no midline tenderness to suggest C-spine injury. - Flexaril - Reassess 03/16/20 16:58 Pain now resolved Pt is well appearing, with normal vitals. Clinically stable for DC at this time. I discussed the physical exam findings, ancillary test results and final diagnoses with the patient. I answered all of the patient's questions. The patient was satisfied with the care received and felt comfortable with the discharge plan and treatment plan. The patient agrees to follow up with the primary care physician within 24-72 hours. Discharge - Discharge Information Problems reviewed: Yes Clinical Impression/Diagnosis: Muscle spasm, Neck pain, Medication refill Condition: Stable Disposition: HOME - Additional Discharge Information Prescriptions: Cyclobenzaprine HCl [Flexeril 10 mg] 5 mg PO BID PRN 7 Days #14 tablet PRN Reason: Muscle Spasms - Follow up/Referral Referrals: Aleida Hagen MD [Primary Care Provider] - - Patient Discharge Instructions Patient Printed Discharge Instructions: DI for Muscle Spasm Additional Instructions: You were seen in the ER for muscle pain. Your symptoms improved with medication. Take the flexeril as directed, until you are able to see your primary care physician for refill. Return to the ER if you are unable to walk, have chest pain, high fevers, or difficulty breathing. Print Language: TELUGU - Post Discharge Activity
[2020-03-17] MEDS ORDERED: CYCLOBENZAPRINE HCL 5 MG TABLET PO ONE (15:51)
== END 2020-03-16 17:18 | disposition home or self-care (01) ==
LOC: JER 14:39
DX: M62.830 Muscle spasm of back (principal)
CPT/HCPCS: 99283-25